=== PATIENT | female | born 1975 | race Caucasian/White ===

== ENCOUNTER 2019-04-03 00:42 | Day surgery (SDC) | payer OTHER, SELFPAY ==
[2019-03-22 10:15] VITALS: BMI 36.3
[2019-04-03 10:25] VITALS: BP 176/96; PULSE 82; RESP 20; TEMP 37; O2SAT 98
[2019-04-03] MEDS: LACTATED RINGERS 1,000 ML 30 ML IV CONT (10:50)
[2019-04-03 10:56] VITALS: BP 176/96; PULSE 82; RESP 20; TEMP 37; O2SAT 98
--- NOTE | 2019-04-03 11:26 | P.PNAN_ITS ---
Anes - Initial Pre Proc Eval Procedure: Operation Date: 04/03/19 12:00 Proposed Procedures p Hysteroscopy, Dilation and Curettage with Tere - Charanjit Cortes MD Date/Time: 04/03/19 11:26 Surgeon: Charanjit Cortes MD Pre Op Diagnosis: heavy bleeding, dysmenorrhea Patient Data Age: 44 Gender: F Height: 5 ft 6 in Weight: 101.7 kg Last Vital Signs Temp 37.0 C 04/03/19 10:56 Pulse 82 04/03/19 10:56 Resp 20 04/03/19 10:56 BP 176/96 H 04/03/19 10:56 Pulse Ox 98 04/03/19 10:56 Allergies Allergy/AdvReac Type Severity Reaction Status Date / Time No Known Allergies Allergy Verified 04/03/19 10:23 Home Medications Medication Instructions Recorded Confirmed Type multivit with min-folic acid 200 mcg PO DAILY 03/17/19 04/03/19 History [Adult Multivitamin Gummies] lilskpwzi-ZG-tjshhsxa-guaifen 2 tablet PO Q4-6H PRN 03/17/19 03/22/19 History [Cold and Flu Severe] azithromycin [Zithromax Z-Radames] 250 mg PO DAILY 03/22/19 04/03/19 History pseudoephedrine-guaifenesin 1 tablet PO Q12H PRN 03/22/19 03/22/19 History [Mucinex D] Patient hx anesthesia problems: none Family hx anesthesia problems: other (father slow to breath) [facility] Past Medical History Medical History Recent URI Anes - Eval Final PreProcedure Day of Procedure 04/03/19 11:26 Patient weight: obese Heart: regular rate and rhythm Lungs: clear to auscultation Airway: Mallampati scale class II Neurological: alert and oriented Last oral intake: >/= 8 hours ASA classification: II Emergent: no Anesthetic plan: proceed Anesthesia type and monitoring: general GIVS and standard monitoring Informed Consent: The patient's anesthetic plan and its attendant risks and be nefits were discussed with the patient/family/POA. Questions were solicited and answers provided to the satisfaction of the patient/family/POA.
--- NOTE | 2019-04-03 11:26 | PM.IMHP ---
H&P: HPI History of Present Illness Chief complaint: heavy bleeding, dysmenorrhea Narrative: CC: Cycle issues. 44-year-old 3 para 3003 who has had a tubal ligation for contraception. She has heavy menses. These occur on a monthly basis, lasting 7-8 days each with heavy flow and cramps. Ultrasound exam demonstrates a bulky, inhomogeneous uterus with a prominent endometrial complex measuring 13.5 cm. control pills have given her headaches in the past. She has tried Depo-Provera and an IUD in the past, as well. She has tried Lysteda recently, but has not had much improvement in her cycles. She is asking for surgical management of her problem. Review of Systems Review of Systems: All systems reviewed & are unremarkable except as noted in HPI and below PMFSH Family History Family History (Updated 04/03/19 @ 11:33 by Charanjit Cortes MD) Other Cancer Diabetes mellitus Hypertension Social History Social History (Updated 04/03/19 @ 11:34 by Charanjit Cortes MD) Social History: . 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 The largest weighed 9#10oz. Past BAKER HEAD: Menarche at 13-14 with menses as above. No history of abnormal pap or STI. Allergies: Dust, pollen, grasses, trees. NKDA. Meds Home Medications and Allergies Home Medications Medication Instructions Recorded Confirmed Type multivit with min-folic acid 200 mcg PO DAILY 03/17/19 04/03/19 History [Adult Multivitamin Gummies] umigtjrtn-BA-yxiozegm-guaifen 2 tablet PO Q4-6H PRN 03/17/19 03/22/19 History [Cold and Flu Severe] azithromycin [Zithromax Z-Radames] 250 mg PO DAILY 03/22/19 04/03/19 History pseudoephedrine-guaifenesin 1 tablet PO Q12H PRN 03/22/19 03/22/19 History [Mucinex D] Allergies Allergy/AdvReac Type Severity Reaction Status Date / Time No Known Allergies Allergy Verified 04/03/19 10:23 Vital Signs Vital Signs - 24 hr 04/03/19 10:25 04/03/19 10:56 Temperature 37.0 C 37.0 C Pulse Rate 82 82 Respiratory Rate 20 20 Blood Pressure 176/96 H 176/96 H Pulse Oximetry 98 98 Exam Const: General: comfortable and no acute distress Neck: Neck: supple Thyroid: thyroid normal Resp: Effort & Inspection: normal respiratory effort Auscultation: clear to auscultation bilaterally Cardio: Rate: regular rate Rhythm: regular rhythm GI: Other: Soft, nontender, nondistended. No guarding or rebound tenderness. No hepatosplenomegaly. : Other: External genitalia: Normal female hair distribution, without lesion Urethral meatus: No lesion, non-prolapsed. Bladder: No mass or tenderness. Vagina: Well estrogenized, without lesion or discharge. No cystocele or rectocele. Cervix: No lesion or discharge. Uterus: Small, anteverted, freely mobile and nontender. Adnexa: No mass or tenderness. Anus and perineum: No lesion, nontender. Skin: General skin exam: no rashes or lesions noted Extrem: Other: Nontender, no edema Psych: Mental Status: mental status grossly normal Affect: normal affect Assessment and Plan Assessment and plan (1) Menometrorrhagia: Code(s): N92.1 - Excessive and frequent menstruation with irregular cycle Status: Acute Assessment and Plan: We have reviewed options including medical management versus surgical management. She is interested in the latter. I have offered her a hysteroscopy with D&C and endometrial ablation. She understands risks of surgery to include risks of anesthesia, risks of pain, infection, bleeding, blood products, thromboembolic phenomena and damage to adjacent structures such as bowel, bladder, ureters, blood vessels and nerves. She understands all these risks and elects to proceed with surgery. (2) Dysmenorrhea: Code(s): N94.6 - Dysmenorrhea, unspecified Status: Acute
[2019-04-03] MEDS: KETOROLAC 30 MG/ML VIAL (*BKC) IV PUSH (13:02)
--- NOTE | 2019-04-03 13:12 | PM.PROC ---
Procedure Note - Detailed Date of procedure: 04/03/19 Pre-op diagnosis: heavy bleeding, dysmenorrhea Menometrorrhagia Dysmenorrhea Post-op diagnosis: same Procedure performed: Hysteroscopy D&C Endometrial ablation Description of procedure: The patient was taken to the operating room where she was prepared and draped in the usual sterile fashion in the dorsal lithotomy position. The bladder was drained with a red rubber catheter. A sterile speculum was placed into the vagina. The anterior lip of the cervix was grasped with single-tooth tenaculum. Ten mL of 1% lidocaine was administered in a paracervical block. The cervix was then gently dilated using Hegar dilators until an 8 mm dilator could be passed. Hysteroscopy was performed using sterile saline as a distention medium. Findings are as noted above. Sharp curettage was then performed, and endometrial curettings were collected on a Telfa pad and passed off to be sent to pathology. Finally, the the Tere device was advanced and endometrial ablation commenced without difficulty. The device was withdrawn and a second look was taken using the hysteroscope. Excellent coverage of the endometrial cavity was noted. The tenaculum was removed. Hemostasis was excellent. Sponge, lap, needle and instrument counts were correct. The patient was awakened and taken to the recovery room in stable condition. I was present and scrubbed through the entire procedure. Implants: None Anesthesia: MAC and local (paracervical block) Surgeon: Charanjit Cortes MD Estimated blood loss (mL): 5 Drains: No Packing: No Pathology: yes (Endometrial curettings) Complications: None Condition: stable Disposition: PACU Findings: The uterus sounded to a depth of 10 cm with a cervical length of 3 cm, giving a subtracted uterine cavity length of 7 cm. The endometrial cavity was unremarkable. Both tubal ostia were seen.
[2019-04-03 13:15] VITALS: BP 149/74; PULSE 80; RESP 16; O2SAT 96
[2019-04-03 13:59] VITALS: BP 160/88; PULSE 74; RESP 16
== END 2019-04-03 14:05 | disposition home or self-care (01) ==
PROVIDERS: Visit Provider Obstetrics & Gynecology
PROC: 0U5B8ZZ Destruction of Endometrium, Via Natural or Artificial Opening Endoscopic (ICD-10-PCS; CPT 58563; principal; 2019-04-03 12:00)
DX: N92.1 Excessive and frequent menstruation with irregular cycle (principal); N94.6 Dysmenorrhea, unspecified; E66.9 Obesity, unspecified; Z68.36 Body mass index [BMI] 36.0-36.9, adult
CPT/HCPCS: 58563; 88305; A9270; J1885; J2250; J2405; J2704; J3010; J7030; J7120

== ENCOUNTER 2019-11-15 00:26 | Outpatient (CLI) | payer OTHER, SELFPAY ==
[2019-11-16 13:39] LABS: SARS-CoV-2 RNA PCR Negative
== END 2019-11-15 00:27 | disposition home or self-care (01) ==
LOC: ANHCOVIDDT 00:27
PROVIDERS: Visit Provider Surgery
DX: Z01.812 Encounter for preprocedural laboratory examination (principal); Z20.828 Contact with and (suspected) exposure to other viral communicable diseases
CPT/HCPCS: 87635; C9803; U0003

== ENCOUNTER 2019-11-18 01:26 | Day surgery (SDC) | payer OTHER, SELFPAY ==
[2019-11-04 17:42] VITALS: BMI 35.5
[2019-11-18 10:00] VITALS: BP 158/88; PULSE 83; RESP 16; TEMP 37.1; O2SAT 99
[2019-11-18] MEDS: LACTATED RINGERS 1,000 ML 30 ML IV CONT (10:28)
--- NOTE | 2019-11-18 10:29 | WPDANESEPPF ---
Anes - Initial Pre Proc Eval Procedure: Operation Date: 11/18/19 12:00 Proposed Procedures p Excision Of Left Lower Back Mass - Steven Schwartz DO Date/Time: 11/18/19 10:29 Surgeon: Steven Schwartz DO Pre Op Diagnosis: Left Lower Back Mass 4cm Patient Data Age: 44 Gender: F Height: 1.68 m Weight: 101.1 kg Allergies Allergy/AdvReac Type Severity Reaction Status Date / Time No Known Allergies Allergy Verified 11/18/19 10:02 Home Medications Medication Instructions Recorded Confirmed Type multivit with min-folic acid 200 mcg PO DAILY 03/17/19 11/18/19 History [Adult Multivitamin Gummies] ibuprofen 600 mg PO Q6H PRN #30 tablet 04/03/19 11/18/19 Rx cetirizine [Zyrtec] 10 mg PO DAILY 11/04/19 11/18/19 History loratadine [Claritin] 10 mg PO DAILY 11/04/19 11/18/19 History Patient hx anesthesia problems: none Family hx anesthesia problems: none [facility] Social History Social History Social History: . 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 Questions were solicited and answers provided to the satisfaction of the patient/family/POA.
--- NOTE | 2019-11-18 11:25 | WPDHPUPDATE1 ---
History and Physical Update Update Date/Time: 11/18/19 11:25 History and Physical has been reviewed, including an updated exam of the patient. There are NO changes in the patient's condition. Risks, benefits, and alternatives have been discussed and questions answered. Patient agrees to proceed with procedure.
[2019-11-18] MEDS: ceFAZolin 2 GM/D5W 50 ML 2 GM/50 ML BAG IVPB (12:01)
[2019-11-18] MEDS: LIDO 1%/EPINEPHRINE 1:100,000 20 ML VIAL INFILTRATE (12:26)
--- NOTE | 2019-11-18 12:27 | P.OP_ITS ---
Procedure Note - Detailed Date of procedure: 11/18/19 Pre-op diagnosis: Left Lower Back Mass 4cm Post-op diagnosis: same Procedure performed: Excision of 4 cm left lower back mass Description of procedure: * Procedure as well as risks, benefits, and alternatives were discussed with the patient. Written consent was obtained and placed in chart prior to procedure. Patient was brought back to surgical suite. She was placed in right lateral decubitus position. Time-out was done to confirm patient and procedure. IV sedation was administered by the Anesthesia Department. Her back area was prepped and draped in sterile fash ion using chlorhexidine prep. 1% lidocaine with epinephrine was infiltrated locally around the mass. A 4 cm elliptical incision was made around the mass using a 15 blade scalpel. The mass was sharply excised from the surrounding subcutaneous tissue using the 15 blade scalpel. The mass was completely excised and sent to the lab for pathology. Hemostasis was then achieved with electrocautery. The wound bed was then irrigated with sterile saline, no further abnormalities were identified. The skin edges were then reapproximated using 3 0 nylon simple interrupted sutures. Bacitracin ointmen t was applied followed by 4 x 4 gauze and tape. The patient was then awakened from anesthesia and transferred to recovery. Anesthesia: MAC and local (1% lidocaine with epinephrine) Surgeon: Steven Schwartz DO Estimated blood loss (mL): 5 Pathology: yes Complications: No immediate complications Condition: stable Disposition: same day Findings: * 4 cm back mass was excised completely. This appeared to be a ruptured epidermal inclusion cyst in the left lower back. No deep abnormalities were noted. There was no sign of active infection at the time of excision. The mass was completely excised and sent to the lab for pathology.
[2019-11-18 12:34] VITALS: BP 133/70; PULSE 78; RESP 16; TEMP 36.4; O2SAT 95
[2019-11-18 13:00] VITALS: BP 145/78; PULSE 77; RESP 16
[2019-11-18 13:20] VITALS: BP 141/76; PULSE 80; RESP 16
== END 2019-11-18 13:30 | disposition home or self-care (01) ==
PROVIDERS: Visit Provider Surgery
PROC: (CPT 11404; principal; 2019-11-18 12:00)
DX: L72.0 Epidermal cyst (principal); E66.9 Obesity, unspecified; Z68.36 Body mass index [BMI] 36.0-36.9, adult
CPT/HCPCS: 11404; 87635; 88304; A9270; C9803; J0690; J2250; J2405; J2704; J3010; J7120; U0003

== ENCOUNTER 2020-01-10 10:52 | Outpatient (CLI) | payer OTHER, SELFPAY | END 2020-01-10 10:53 | disposition home or self-care (01) | LOC: ANHSURGERY 10:54 | PROVIDERS: Visit Provider Obstetrics & Gynecology | DX: N94.6 Dysmenorrhea, unspecified (principal); Z01.818 Encounter for other preprocedural examination | CPT/HCPCS: 36415; 86850; 86900; 86901 ==

== ENCOUNTER 2020-01-17 01:54 | Outpatient (CLI) | payer OTHER, SELFPAY ==
[2020-01-17 19:51] LABS: SARS-CoV-2 RNA PCR Negative
== END 2020-01-17 01:55 | disposition home or self-care (01) ==
LOC: ANHCOVIDDT 01:54
PROVIDERS: Visit Provider Obstetrics & Gynecology
DX: Z01.812 Encounter for preprocedural laboratory examination (principal); Z20.828 Contact with and (suspected) exposure to other viral communicable diseases
CPT/HCPCS: 87635; C9803; U0003

== ENCOUNTER 2020-01-20 00:32 | Day surgery (SDC) | payer OTHER, SELFPAY ==
[2020-01-07 14:51] VITALS: BMI 35.6
[2020-01-20] VITALS (14 sets, daily range): BP systolic 139–170; BP diastolic 68–80; PULSE 54–94; RESP 12–20; TEMP 36.2–37.2; O2SAT 96–100
--- NOTE | 2020-01-20 07:26 | WPDANESEPPF ---
Anes - Initial Pre Proc Eval Procedure: Operation Date: 01/20/20 12:00 Proposed Procedures p Robotic Total Vaginal Hysterectomy, Bilateral Salpingectomy - Charanjit Cortes MD Date/Time: 01/20/20 07:26 Surgeon: Charanjit Cortes MD Pre Op Diagnosis: Excessive Bleeding Patient Data Age: 45 Gender: F Height: 1.68 m Weight: 100 kg Allergies Allergy/AdvReac Type Severity Reaction Status Date / Time No Known Allergies Allergy Verified 01/20/20 10:06 Home Medications Medication Instructions Recorded Confirmed Type Adult Multivitamin Gummies 200 mcg PO DAILY 03/17/19 01/20/20 History ibuprofen 600 mg PO Q6H PRN #30 tablet 04/03/19 01/20/20 Rx cetirizine [Zyrtec] 10 mg PO DAILY PRN 11/04/19 01/20/20 History loratadine [Claritin] 10 mg PO DAILY PRN 11/04/19 01/20/20 History acetaminophen-codeine 300 tablet PO PRN PRN 01/07/20 01/20/20 History Patient hx anesthesia problems: none Family hx anesthesia problems: none PMFSH Past Medical History Medical History Environmental and seasonal allergies Recent URI Surgical History Surgical History delivery delivered H/O excision of mass 11/18/2019: 4cm back mass excision History of cholecystectomy History of D&C History of prior ablation treatment Family History Family History Father Diabetes mellitus Other Cancer Hypertension Social History Social History Social History: . 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 Gender identity (if verbalized by the patient): Female Sexual Orientation (if Verbalized by the Patient): Straight or Heterosexual Spiritual care concerns: No Anes - Eval Final PreProcedure Day of Procedure 01/20/20 07:26 Patient weight: obese Heart: regular rate and rhythm Lungs: clear to auscultation and normal air movement Airway: Mallampati scale class II Neurological: alert and oriented Last oral intake: >/= 8 hours ASA classification: II Emergent: no Anesthetic plan: proceed Anesthesia type and monitoring: general ETT and standard monitoring Informed Consent: The patient's anesthetic plan and its attendant risks and benefits were discussed with the patient/family/POA. Questions were solicited and answers provided to the satisfaction of the patient/family/POA.
--- NOTE | 2020-01-20 10:07 | PM.IMHP ---
H&P: HPI History of Present Illness Date/Time: 01/20/20 10:07 Chief complaint: Excessive Bleeding Narrative: 45 y/o who has had a tubal ligation and an endometrial ablation. She still has menses lasting 7 days each with especially heavy flow for 2-3 days. Sometime she will overflow her tampon onto her pad onto her clothing. Ultrasound exam shows an inhomogeneous myometrium. Endometrial curettings were benign at the time of endometrial ablation. Review of Systems Review of Systems: All systems reviewed & are unremarkable except as noted in HPI and below PMFSH Past Medical History Medical History Environmental and seasonal allergies Recent URI Surgical History Surgical History delivery delivered H/O excision of mass 11/18/2019: 4cm back mass excision History of cholecystectomy History of D&C History of prior ablation treatment Family History Family History Father Diabetes mellitus Other Cancer Hypertension Social History Social History Social History: . 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 Gender identity (if verbalized by the patient): Female Sexual Orientation (if Verbalized by the Patient): Straight or Heterosexual Spiritual care concerns: No Meds Home Medications and Allergies Home Medications Medication Instructions Recorded Confirmed Type Adult Multivitamin Gummies 200 mcg PO DAILY 03/17/19 01/07/20 History ibuprofen 600 mg PO Q6H PRN #30 tablet 04/03/19 01/07/20 Rx cetirizine [Zyrtec] 10 mg PO DAILY PRN 11/04/19 01/07/20 History loratadine [Claritin] 10 mg PO DAILY PRN 11/04/19 01/07/20 History acetaminophen-codeine 300 tablet PO PRN PRN 01/07/20 01/07/20 History Allergies Allergy/AdvReac Type Severity Reaction Status Date / Time No Known Allergies Allergy Verified 01/20/20 10:06 Exam Const: Orientation/consciousness: patient oriented x3 Other: Well-developed, well-nourished female in no acute distress. Neck: Thyroid: thyroid normal Lymphatic: no lymphadenopathy noted (in neck, axilla or inguinal nodes) Resp: Effort & Inspection: normal respiratory effort Auscultation: clear to auscultation bilaterally Cardio: Rate: regular rate Rhythm: regular rhythm Heart sounds: S1 normal heart sound present and S2 normal heart sound present GI: Other: ABD: Soft, nontender, nondistended. No guarding or rebound tenderness. No hepatosplenomegaly. : General: Yes no CVA tenderness Other: External genitalia: normal female hair distribution, without lesion. Urethral meatus: no lesion, non prolapsed. Bladder: no mass, nontender Vagina: well-estrogenized, without lesion or discharge. No cystocele or rectocele. Cervix: no lesion or discharge. Uterus: small, anteverted, freely mobile, nontender Adnexa: no mass or tenderness. Anus/perineum: no lesions, nontender Back/Spine/Pelvis: Back: no CVA tenderness Skin: General skin exam: normal color and no rashes or lesions noted Neuro: General: patient oriented x3 Extrem: Other: Extremities: nontender with no edema Psych: Mental Status: mental status grossly normal Affect: normal affect Assessment and Plan Assessment and plan (1) Menometrorrhagia: Code(s): N92.1 - Excessive and frequent menstruation with irregular cycle Status: Acute Assessment and Plan: I offered continued attempts at conservative management. She is interested in definitive treatment with hysterectomy. I offered robotic-assisted TVH with bilateral salpingectomy. We plan to leave the ovaries in situ.
[2020-01-20] MEDS: LACTATED RINGERS 1,000 ML 30 ML IV CONT ×2 (10:15→14:01)
--- NOTE | 2020-01-20 11:48 | WPDHPUPDATE1 ---
History and Physical Update Update Date/Time: 01/20/20 11:48 History and Physical has been reviewed, including an updated exam of the patient. There are NO changes in the patient's condition. Risks, benefits, and alternatives have been discussed and questions answered. Patient agrees to proceed with procedure.
[2020-01-20] MEDS: ceFAZolin 2 GM/D5W 50 ML 2 GM/50 ML BAG IVPB (11:59)
--- NOTE | 2020-01-20 13:50 | P.OP_ITS ---
Procedure Note - Detailed Date of procedure: 01/20/20 Pre-op diagnosis: Excessive Bleeding Menometrorrhagia Post-op diagnosis: same Procedure performed: Robotic assisted total vaginal hysterectomy with bilateral salpingectomies Description of procedure: The patient was taken to the operating room where general endotracheal anesthesia was administered. She was prepared and draped in the usual sterile fashion in the dorsal lithotomy position. The bladder was drained with Ayala catheter. The cervix was visualized and the anterior lip was grasped using a single-tooth tenaculum. The cervix was gently dilated using Hegar dilators. The ANA PAULA 2 uterine manipulator was then placed and the tenaculum was removed. Gloves were changed and attention was turned to the abdomen. A supraumbilical skin incision was made with the scalpel. The Veress needle was advanced and pneumoperitoneum was administered using carbon dioxide gas. The bladeless trocar was then advanced. Intraperitoneal placement was confirmed using the laparoscope. Lateral ports and an licensed occupational therapy assistant port were all placed using bladeless trocars under direct laparoscopic visualization. She was placed in Trendelenburg position and the patient cart was docked. I assumed the console. The ureters were visualized bilaterally. The round ligament on the right was divided. The Fallopian tube was dissected free of the ovary and the uteroovarian ligament divided. The broad ligament was divided, skeletonizing the uterine artery on the right. The bladder was reflected away. The left side was similarly dissected. Colpotomy was performed circumferentially. The specimen was removed and passed off to be sent to pathology. The vaginal cuff was reapproximated using 0 Vicryl in interrupted kkonfr-en-tntip fashion. The pelvis was irrigated copiously using warmed normal saline. Rigorous hemostasis was assured. HemaDerm was applied to the vaginal cuff. The pedicles were inspected once again. The ports were then withdrawn and the gas was allowed to escape. The skin incisions were reapproximated using 4 0 Monocryl in interrupted subcuticular fashion. Dermaflex was applied externally. Sponge, lap, needle and instrument counts were correct. The patient was awakened and taken to the recovery room in stable condition. I was present and scrubbed through the entire procedure. Implants: None Anesthesia: GETA Surgeon: Charanjit Cortes MD Estimated blood loss (mL): 50 Drains: Yes (ayala) Packing: No Pathology: yes (uterus, cervix, bilateral Fallopian tubes) Complications: None Condition: stable Disposition: PACU Findings: Uterus a little enlarged, otherwise normal-appearing. Bilateral Fallopian tubes demonstrate evidence of prior tubal ligation. Adhesions between the omentum and the left lateral pelvic sidewall.
[2020-01-20] MEDS: KETOROLAC 30 MG/ML VIAL (*BKC) 15 MG IV PUSH (13:52)
--- NOTE | 2020-01-20 13:53 | PM.DS ---
DS: Admitting Diagnosis Admitting Diagnosis Admitting Diagnosis: Menometrorrhagia DS: Discharge Diagnosis Discharge Diagnosis (1) Menometrorrhagia: Code(s): N92.1 - Excessive and frequent menstruation with irregular cycle Status: Acute DS: Data Data Completed and Pending Pending studies at discharge: Pending at discharge 01/20/20 13:10 Surgical [PTH] Routine Discharge Plan Discharge Patient Disposition: Home, Self-Care Discharge Instructions: Call or return if temperature above 100.4? F, increased abdominal pain, increased vaginal bleeding or any new problems. Stand Alone Forms: General Discharge Instructions Follow-up/Referrals: Charanjit Cortes MD [Physician] - 2 Weeks Discharge Medications: New hydrocodone-acetaminophen [[place]] 5-325 mg tablet 1 - 2 tablet PO Q6H PRN (Reason: pain) Qty: 30 RF: 0 No Action Adult Multivitamin Gummies 200 mcg Tablet,Chewable 200 mcg PO DAILY RF: 0 ibuprofen 600 mg tablet 600 mg PO Q6H PRN (Reason: cramps) Qty: 30 RF: 0 acetaminophen-codeine 300-30 mg tablet 300 tablet PO PRN PRN (Reason: Pain) RF: 0 cetirizine [Zyrtec] 10 mg Tablet 10 mg PO DAILY PRN (Reason: Allergy Symptoms) RF: 0 loratadine [Claritin] 10 mg Tablet 10 mg PO DAILY PRN (Reason: Allergy Symptoms) RF: 0
[2020-01-20] MEDS: fentaNYL CITRATE INJ (*CRX) 100 MCG/2 ML VIAL 25 MCG IV PUSH ×4 (14:24→14:42)
[2020-01-20] MEDS: HYDROmorphone HCL INJ (*CRX) 1 MG/ML SYR 0.5 MG IV PUSH ×2 (14:57→15:05)
[2020-01-20] MEDS: DEXTROSE 5%/0.45% SOD CHL 1,000 ML 125 ML IV CONT ×2 (15:44→23:27)
[2020-01-20] MEDS: MORPHINE SULFATE (*CRX) 4 MG/ML INJ IV PUSH (16:50)
--- NOTE | 2020-01-20 17:03 | OBPPTRN ---
Addendum entered by Trudi Shane RN 01/20/20 17:04: done at 1528 Original Note: Patient transferred to post room #289 via bed. Oriented to unit, room, information board, Patient verbalizes understanding.
[2020-01-20] MEDS: ONDANSETRON INJ 4 MG/2 ML VIAL IV PUSH (17:53)
[2020-01-20] MEDS: ENOXAPARIN 40 MG/0.4 ML SYRINGE SUB-Q (21:12)
[2020-01-20] MEDS: KETOROLAC 30 MG/ML VIAL (*BKC) IV PUSH (21:17)
[2020-01-21] VITALS: BP 140/71; PULSE 90; RESP 16; TEMP 37; O2SAT 100
[2020-01-21 04:00] VITALS: BP 133/66; PULSE 70; RESP 16; TEMP 37.1; O2SAT 99
[2020-01-21] MEDS: HYDROcodone/acetaminophen (*CRX) 5-325 MG TABLET 1 TAB PO ×2 (04:08→08:36)
[2020-01-21 05:15] LABS: Basophils Percent Auto 0.1 % (0.2-1.2); Hematocrit 35.5 % (37.0-47.0); Hemoglobin 11.7 g/dL (12.0-15.0); Immature Granulocyte Absolute 0.07 K/mm3 (0.00-0.031); Immature Granulocyte Percent A 0.5 % (0-0.5); Lymphocytes Percent Auto 6.9 % (18.3-44.2); Mean Corpuscular Hemoglobin 28.3 pg (26-34); Mean Corpuscular Volume 85.7 fl (80-100); Mean Platelet Volume 8.8 fl (7.4-10.4); Monocytes Absolute Auto 0.7 K/mm3 (0.1-0.6); Monocytes Percent Auto 5.1 % (2.6-8.5); Neutrophils Absolute Auto 12.8 K/mm3 (1.3-6.7); Neutrophils Percent Auto 87.4 % (45.5-73.1); Platelet Count Result 349 k/mm3 (150-375); Red Blood Count 4.14 M/mm3 (4.2-5.4); Red Cell Distribution Width 12.9 % (11.5-14.5); White Blood Count 14.6 K/mm3 (4.5-10.0)
[2020-01-21 08:05] VITALS: BP 147/72; PULSE 83; RESP 16; TEMP 37.5; O2SAT 99
[2020-01-21] MEDS: ENOXAPARIN 40 MG/0.4 ML SYRINGE SUB-Q (08:37)
--- NOTE | 2020-01-21 08:47 | PM.GYNPNOP ---
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 P: Home to f/u 2 weeks. 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 Tolerating diet. Voiding. Would like to go home. Exam Narrative: Exam Narrative: AVSS I/O OK ABD soft, nontender. Incisions c/d/i. 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 OPERATOR - PN: Obj Data Vital Signs Vital Signs: Vital Signs - 24 hr 01/20/20 10:01 01/20/20 14:01 01/20/20 14:15 Temperature 36.6 C 36.2 C L Pulse Rate 70 58 L 54 L Respiratory Rate 20 12 12 Blood Pressure 170/77 H 139/68 147/73 H Pulse Oximetry 100 98 100 01/20/20 14:30 01/20/20 14:45 01/20/20 15:00 Temperature Pulse Rate 58 L 63 63 Respiratory Rate 12 12 12 Blood Pressure 154/71 H 158/74 H 141/74 H Pulse Oximetry 100 100 100 01/20/20 15:15 01/20/20 15:28 01/20/20 15:45 Temperature 36.4 C L Pulse Rate 66 69 67 Respiratory Rate 14 16 Blood Pressure 146/73 H 156/74 H 151/73 H Pulse Oximetry 97 96 99 01/20/20 16:00 01/20/20 16:30 01/20/20 17:00 Temperature Pulse Rate 80 81 83 Respiratory Rate Blood Pressure 148/73 H 140/71 152/71 H Pulse Oximetry 98 96 97 01/20/20 18:00 01/20/20 19:00 01/21/20 00:00 Temperature 37.2 C 37.0 C Pulse Rate 94 87 90 Respiratory Rate 16 16 Blood Pressure 155/80 H 151/75 H 140/71 Pulse Oximetry 97 98 100 01/21/20 04:00 Temperature 37.1 C Pulse Rate 70 Respiratory Rate 16 Blood Pressure 133/66 Pulse Oximetry 99 Intake/Output Intake/Output: Intake & Output 01/18/20 01/19/20 01/20/20 01/21/20 23:59 23:59 23:59 23:59 Intake Total 5260 1175 Output Total 975 850 Balance 1455 325 Meds/Results Medications: Active Medications Generic Name Dose Route Start Last Admin Trade Name Freq PRN Reason Stop Dose Admin Hydrocodone Bitart/Acetaminophen 1 tab 01/20/20 15:24 01/21/20 08:36 Hydrocodone/Acetaminophen (*Crx) 5-325 Mg Tablet PO 1 tab Q3H PRN Administration Pain Rated 5 or Less Hydrocodone Bitart/Acetaminophen 1 tab 01/20/20 15:24 Hydrocodone/Acetaminophen (*Crx) 10-325 Mg Tablet PO Q3H PRN Pain Rated 6 or Greater Docusate Sodium 100 mg 01/20/20 17:00 01/20/20 18:33 Docusate Sodium 100 Mg Capsule PO Not Given BID SUMAN Enoxaparin Sodium 40 mg 01/20/20 21:00 01/21/20 08:37 Enoxaparin 40 Mg/0.4 Ml Syringe SUB-Q 40 mg DAILY SUMAN Administration Ketorolac Tromethamine 30 mg 01/20/20 15:24 01/20/20 21:17 Ketorolac 30 Mg/Ml Vial (*Bkc) IV PUSH 01/25/20 15:25 30 mg Q6H PRN Administration Pain Rated 4-6 Metoclopramide HCl 10 mg 01/20/20 15:24 Metoclopramide Hcl Inj 10 Mg/2 Ml Vial IV PUSH Q6H PRN Nausea Morphine Sulfate 4 mg 01/20/20 15:24 01/20/20 16:50 Morphine Sulfate (*Crx) 4 Mg/Ml Inj IV PUSH 4 mg Q4H PRN Administration Pain Rated 7-10 Naloxone HCl 0.1 mg 01/20/20 15:24 Naloxone Hcl 0.4 Mg/Ml Vial IV PUSH Q2M PRN Respiratory rate less than 10 Ondansetron HCl 4 mg 01/20/20 15:24 01/20/20 17:53 Ondansetron Inj 4 Mg/2 Ml Vial IV PUSH 4 mg Q6H PRN Administration Nausea Simethicone 80 mg 01/20/20 15:24 Simethicone 80 Mg Tab.Chew PO Q2H PRN Gas Labs CBC & Chem 7: 01/21/20 04:09 Labs: Laboratory Results - last 24 hr 01/21/20 04:09 WBC 14.6 H RBC 4.14 L Hgb 11.7 L Hct 35.5 L MCV 85.7 MCH 28.3 MCHC 33.0 RDW 12.9 Plt Count 349 MPV 8.8 Immature Gran % (Auto) 0.5 Neut % (Auto) 87.4 H Lymph % (Auto) 6.9 L [place] % (Auto) 5.1 Eos % (Auto) 0.0 Baso % (Auto) 0.1 L Lymph # (Auto) 1.00 [place] # (Auto) 0.7 H Eos # (Auto) 0.0 Baso # (Auto) 0.0 Abs Immat Gran (auto) 0.07 H Absolute Neuts (a
== END 2020-01-21 11:00 | disposition home or self-care (01) ==
LOC: ANHSURGERY 13:54 → ANHOB2 15:25
PROVIDERS: Visit Provider Obstetrics & Gynecology
PROC: (CPT 58552; principal; 2020-01-20 12:00)
DX: N92.1 Excessive and frequent menstruation with irregular cycle (principal); N72 Inflammatory disease of cervix uteri; E66.9 Obesity, unspecified; Z68.36 Body mass index [BMI] 36.0-36.9, adult
CPT/HCPCS: 58552; S2900; 36415; 85025; 88307; 99199; A9270; J0330; J0690; J1100; J1170; J1650; J1885; J2250; J2270; J2405; J2704; J2710; J3010; J7030; J7120

== ENCOUNTER → 2020-04-17 14:12 | Outpatient (CLI) | payer OTHER, SELFPAY ==
--- NOTE | ~2020-04-17 | MM_ITS ---
EXAMINATION: MM screening arsenio BI w maria m HISTORY: Screening mammogram TECHNIQUE: Craniocaudal and mediolateral oblique 3-D tomosynthesis images were obtained and synthetic 2-D images were generated. CAD analysis was submitted and interpreted. COMPARISON: No prior mammogram is available for comparison at this institution. BREAST PARENCHYMAL COMPOSITION: The breasts are heterogeneously dense, which may obscure small masses . FINDINGS: Numerous scattered bilateral benign microcalcifications. Bilateral intramammary lymph nodes are noted.. There is no evidence of suspicious mass, calcification, or architectural distortion to s uggest malignancy in either breast. There has been no suspicious interval change. IMPRESSION: 1. No mammographic evidence of malignancy. 2. Recommend routine screening mammography in one year. BI-RADS Category 2: Benign finding(s). Reviewed, dictated and finalized at location A. BLE PROCESSOR
== END ==
PROVIDERS: Visit Provider Obstetrics & Gynecology
DX: Z12.31 Encounter for screening mammogram for malignant neoplasm of breast (principal)
CPT/HCPCS: 77063; 77067

== ENCOUNTER → 2020-10-27 14:56 | Outpatient (CLI) | payer OTHER, SELFPAY ==
--- NOTE | ~2020-10-27 | MR_ITS ---
EXAMINATION: MR lumbar spine wo con DATE: 10/27/2020 15:42 INDICATION: Low back pain. TECHNIQUE: Magnetic resonance imaging (MRI) of the lumbar spine was performed without intravenous con trast. Sequences included sagittal T2-weighted FSE, sagittal T2-weighted FS FSE, sagittal T1-weighted FSE, and axial T2-weighted FSE. COMPARISON: None FINDINGS: Bone alignment is normal. There are Schmorl's nodes at multiple levels. Intervertebral disc heights are normal. The distal spinal cord signal intensity is normal. The conus medullaris is at T1 2-L1. The following disc levels are specifically discussed: L1-L2: The disc does not extend beyond the endplate margin. There is mild bilateral facet joint osteo arthritis. There is no neural foraminal stenosis. There is no central canal stenosis. L2-L3: There is a left foraminal protrusion. There is mild bilateral facet joint osteoarthritis. Ther e is mild left neural foraminal stenosis. There is no central canal stenosis. L3-L4: There is a right foraminal protrusion. There is mild bilateral facet joint osteoarthritis. The re is mild right neural foraminal stenosis. There is no central canal stenosis. L4-L5: The disc does not extend beyond the endplate margin. There is mild bilateral facet joint osteo arthritis. There is no neural foraminal stenosis. There is no central canal stenosis. L5-S1: There is a right central protrusion with annular fissure. There is no facet joint osteoarthrit is. There is mild bilateral neural foraminal stenosis. There is mild central canal stenosis. IMPRESSION: 1. Mild lumbar spondylosis. Reviewed, dictated and finalized at location A. IMPRESSION: 1. Mild lumbar spondylosis.
== END ==
PROVIDERS: PCP Nurse Practitioner Family; Visit Provider Nurse Practitioner Family
DX: M54.41 Lumbago with sciatica, right side (principal); M47.896 Other spondylosis, lumbar region
CPT/HCPCS: 72148

== ENCOUNTER 2021-03-02 11:49 | Outpatient (CLI) | payer OTHER, SELFPAY ==
--- NOTE | ~2021-03-02 | MMUS_ITS ---
EXAMINATION: MM diagnostic arsenio BI w maria m, US breast RT limited HISTORY: Palpable right breast abnormality TECHNIQUE: Additional 3-D tomosynthesis images of the breasts were performed and synthetic 2-D images were generated. CAD analysis was submitted and interpreted. High resolution Limited right breast ult rasound was performed. COMPARISON: 04/17/2020 BREAST PARENCHYMAL COMPOSITION: The breasts are heterogenously dense, which may obscure small masses. FINDINGS: MAMMOGRAPHIC FINDINGS: There are benign right breast calcifications. No new masses, calcifications or architectural distorti on are identified in either breast to suggest malignancy. ULTRASOUND: Limited right breast ultrasound: At 10:00, 2 cm from the nipple there is an oval hypoechoic circumscr ibed mass with parallel orientation, no significant posterior features or internal vascularity measur ing 6 x 6 x 5 mm, likely benign complicated cyst or fibroadenoma. At 10:00, 3 cm from the nipple, the re is a 3 mm cyst. IMPRESSION: 1. Probable benign right breast mass at 10:00, 2 cm from the nipple 2. Recommend 6 month follow-up limited right breast ultrasound BI-RADS category 3, probably benign findings. Reviewed, dictated and finalized at location A. TOPPER IMPRESSION: 1. Probable benign right breast mass at 10:00, 2 cm from the nipple 2. Recommend 6 month follow-up limited right breast ultrasound BI-RADS category 3, probably benign findings.
== END 2021-03-02 11:50 | disposition home or self-care (01) ==
LOC: ANHIMG 11:53
PROVIDERS: PCP Nurse Practitioner Family; Visit Provider Obstetrics & Gynecology
DX: R92.8 Other abnormal and inconclusive findings on diagnostic imaging of breast (principal)
CPT/HCPCS: 76642; 77062; 77066; G0279

== ENCOUNTER 2021-03-06 10:09 | Emergency (ER) | payer OTHER, SELFPAY ==
--- NOTE | ~2021-03-06 | XR_ITS ---
EXAMINATION: XR ankle LT min 3V DATE: 03/06/2021 12:34 INDICATION: Left ankle injury. Fall. TECHNIQUE: 4 views of left ankle were obtained. COMPARISON: None. FINDINGS: Bone alignment is normal. No fracture. There is an osteochondral lesion of lateral talar do me. There is mild osteoarthritis of talonavicular joint. There are enthesophytes at the posterior and plantar aspects of calcaneal tuberosity. IMPRESSION: 1. Osteochondral lesion of lateral talar dome. Reviewed, dictated and finalized at location A. CATION SPECIALIST
--- NOTE | ~2021-03-06 | XR_ITS ---
EXAMINATION: XR foot LT min 3V DATE: 03/06/2021 13:13 INDICATION: Left foot injury and pain. TECHNIQUE: 4 views of left foot were obtained. COMPARISON: None. FINDINGS: There is chronic deformity of head of fifth proximal phalanx. Bone alignment is normal. No fracture. There is mild osteoporosis of some of the interphalangeal joints and first metatarsophalang eal joint. There are enthesophytes at the posterior and plantar aspects of calcaneal tuberosity. IMPRESSION: 1. Mild polyarticular osteoarthritis. Reviewed, dictated and finalized at location A. OP SOFTWARE ENGINEER
[2021-03-06 10:31] VITALS: BP 216/87; PULSE 85; RESP 16; TEMP 36.6; O2SAT 100
[2021-03-06] MEDS: HYDROcodone/acetaminophen (*CRX) 5-325 MG TABLET 1 TAB PO (13:32)
--- NOTE | 2021-03-06 13:43 | ED.LOWEXIN ---
HPI - Extremity Injury (Lower) General Chief Complaint: Extremity Injury, Lower Stated Complaint: pain in left foot Time Seen by Provider: 03/06/21 11:43 Source: RN notes reviewed History of Present Illness HPI Narrative: Patient presents emergency department from home for left ankle pain. Patient states she was walking yesterday when she slipped in the mud and twisted her left ankle. States she had pain in the left lateral ankle since that time with mild swelling she has been using crutches to walk as it hurts to weight-bear states that she took ibuprofen at home with no relief she denies any other trauma or injury denies falling to the ground or striking her head states she does have a history of hypertension but not take her blood pressure medications morning Related Data Home Medications Medication Instructions Recorded Confirmed loratadine [Claritin] 10 mg PO DAILY PRN 11/04/19 12/22/20 Allergies Allergy/AdvReac Type Severity Reaction Status Date / Time No Known Allergies Allergy Verified 03/06/21 12:04 Review of Systems Review of Systems: Gen.: Denies fevers or chills Musculoskeletal: See HPI Neuro: Denies numbness, tingling, weakness Skin: Denies rash Endo: Denies DM PMFSH Past Medical History Medical History Abdominal discomfort in left upper quadrant Carpal tunnel syndrome on both sides Elevated blood pressure reading in office without diagnosis of hypertension Elevated WBC count Encounter to establish care Environmental and seasonal allergies Hypertension Lumbago with sciatica, right side Mixed hyperlipidemia Recent URI Surgical History Surgical History delivery delivered H/O excision of mass 11/18/2019: 4cm back mass excision History of cholecystectomy History of D&C History of prior ablation treatment Hx of hysterectomy 2019 Family History Family History Father Diabetes mellitus Sibling Asthma Mother Diabetes mellitus Other Cancer Hypertension Social History Social History Social History: . 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 Following commands, speech normal, no focal deficits SKIN:: Warm, dry. Normal Color no rash or lesions Course Course Emergency Course: Discussed with patient results of workup and diagnosis. Discussed need for follow-up with primary care, proper use of medication, and reasons to return to the emergency department. Patient understands and agrees to current treatment plan Vital Signs Vital signs: Vital Signs Temperature 98 F 03/06/21 10:31 Pulse Rate 85 03/06/21 10:31 Respiratory Rate 16 03/06/21 10:31 Blood Pressure 216/87 H 03/06/21 10:31 Pulse Oximetry 100 03/06/21 10:31 Temperature 98 F 03/06/21 10:31 Pulse Rate 85 03/06/21 10:31 Respiratory Rate 16 03/06/21 10:31 Blood Pressure 216/87 H 03/06/21 10:31 Pulse Oximetry 100 03/06/21 10:31 MDM - Extremity Injury (Lower) Imaging Data Radiologist's impression: ITS Impressions
== END 2021-03-06 14:14 | disposition home or self-care (01) ==
PROVIDERS: Emergency Provider Emergency Medicine; PCP Nurse Practitioner Family
DX: S93.402A Sprain of unspecified ligament of left ankle, initial encounter (principal); I10 Essential (primary) hypertension; W01.0XXA Fall on same level from slipping, tripping and stumbling without subsequent striking against object, initial encounter
CPT/HCPCS: 73610; 73630; 99283; A9270

== ENCOUNTER 2021-03-15 15:45 | Outpatient (CLI) | payer OTHER, SELFPAY ==
--- NOTE | ~2021-03-15 | MR_ITS ---
EXAMINATION: MR ankle LT wo con DATE: 03/15/2021 16:53 INDICATION: Rupture of peroneal tendon of left foot. TECHNIQUE: Magnetic resonance imaging (MRI) of the left ankle was performed without intravenous contr ast. Sequences included sagittal PD-weighted FS FSE, sagittal PD-weighted FSE, coronal PD-weighted FS FSE, coronal PD-weighted FSE, axial PD-weighted FS FSE, and axial PD-weighted FSE. COMPARISON: Left foot and ankle radiographs 03/06/2021 FINDINGS: Medial ankle ligaments: The deep and superficial components of the deltoid ligament are normal. Lateral ankle ligaments: The anterior and posterior talofibular ligaments and calcaneofibular ligament are normal. There are c hanges of prior sprain of anterior tibiofibular ligament characterized by increased signal intensity. Posterior tibiofibular ligament is normal. Tendons: The medial and anterior ankle tendons are normal. There is mild Achilles tendinopathy. There is a issac gitudinal split tear of peroneus brevis tendon. There is a complete tear of peroneus longus tendon at the cuboid tunnel with gap spanning 2.6 cm. Plantar fascia: There is thickening and increased signal involving the central band of plantar fascia, consistent wit h fasciitis. There is an enthesophyte at the calcaneal attachment. Bones/other: Bone alignment is normal. There is an osteochondral lesion of lateral talar dome with stable features . Fluid: There are small ankle and subtalar joint effusions. IMPRESSION: 1. Complete tear of peroneus longus tendon at the cuboid tunnel. Longitudinal split tear of peroneus brevis tendon. 2. Stable osteochondral lesion of lateral talar dome. 3. Plantar fasciitis. Reviewed, dictated and finalized at location B. ING SUPERVISOR IMPRESSION: 1. Complete tear of peroneus longus tendon at the cuboid tunnel. Longitudinal s plit tear of peroneus brevis tendon. 2. Stable osteochondral lesion of lateral talar dome. 3. Plantar fasciitis.
== END 2021-03-15 15:46 | disposition home or self-care (01) ==
LOC: ANHIMG 15:53
PROVIDERS: PCP Nurse Practitioner Family
DX: S96.812A Strain of other specified muscles and tendons at ankle and foot level, left foot, initial encounter (principal); M89.9 Disorder of bone, unspecified; M72.2 Plantar fascial fibromatosis
CPT/HCPCS: 73721

== ENCOUNTER 2021-10-07 12:35 | Outpatient (CLI) | payer OTHER, SELFPAY ==
--- NOTE | ~2021-10-07 | US_ITS ---
US breast RT limited 10/07/2021 13:23 Indication: Follow-up right breast mass Procedure: High-resolution Limited ultrasound of the right breast Comparison: 03/02/2021 Findings: At 10:00, 2 cm from the nipple there is a cystic mass measuring up to 6 mm maximum dimensio n which appears to be contiguous with a duct on the longitudinal image, possibly focally dilated duct or adjacent cyst. No suspicious masses to suggest malignancy. Impression: 1: Benign-appearing 6 mm cystic mass of the right breast at 10:00, 2 cm from the nipple. No sonograph ic evidence for malignancy. Routine yearly screening mammogram and regular clinical breast examination are recommended. BI-RADS CATEGORY 2 - BENIGN FINDINGS Reviewed, dictated and finalized at location A. Impression: 1: Benign-appearing 6 mm cystic mass of the right breast at 10:00, 2 cm from th e nipple. No sonographic evidence for malignancy. Routine yearly screening mammogram and regular clinical breast examination are recommended. BI-RADS CATEGORY 2 - BENIGN FINDINGS
== END 2021-10-07 12:36 | disposition home or self-care (01) ==
PROVIDERS: PCP Nurse Practitioner Family; Visit Provider Obstetrics & Gynecology
DX: R92.8 Other abnormal and inconclusive findings on diagnostic imaging of breast (principal); N63.11 Unspecified lump in the right breast, upper outer quadrant
CPT/HCPCS: 76642

== ENCOUNTER 2021-10-23 10:33 | Emergency (ER) | payer OTHER, SELFPAY ==
--- NOTE | 2021-10-23 10:40 | ED.URI ---
HPI - URI/Sore Throat General Chief Complaint: Upper Respiratory Infection Stated Complaint: cough,ear pain Time Seen by Provider: 10/23/21 10:40 Source: patient and RN notes reviewed Mode of arrival: ambulatory Limitations: no limitations History of Present Illness HPI Narrative: 46-year-old female presents to the [facility] with complaints of cough and right ear pain. Patient reports that she has had a cough for the last 6 weeks, the last week and a half has developed postnasal drip, worsening cough and right ear pain. Has taken allergy medication. First thought 6 weeks ago that it was her allergies acting up. Denies any fevers, nausea, vomiting or diarrhea. Denies headaches currently. Patient does take lisinopril daily for her blood pressure, currently under treatment for blood pressure issues Denies chest pain or shortness of breath Reports that her albuterol inhaler that she was prescribed a year ago helps her coughing MD elicited complaint: cough Related Data Allergies Allergy/AdvReac Type Severity Reaction Status Date / Time No Known Allergies Allergy Verified 10/23/21 10:52 Review of Systems Review of Systems: All systems reviewed & are unremarkable except as noted in HPI and below Constitutional: Constitutional: Reports no additional constitutional complaints, Denies chills and Denies fever(s) Eyes: Eyes: Reports no additional eye complaints ENT: Reports as per HPI and Reports otalgia Cardiovascular: Cardiovascular: Reports no additional cardiovascular complaints Respiratory: Respiratory: Reports as per HPI and Reports cough Gastrointestinal: Gastrointestinal: Reports no additional gastrointestinal complaints Musculoskeletal: Musculoskeletal: Reports no additional musculoskeletal complaints Integumentary/Breasts: Skin/Breast: Reports system reviewed and no additional complaints, except as docu Neurologic: Reports system reviewed and no additional complaints, except as documented Psychiatric: Psychiatric: Reports no additional psychiatric complaints Allergic/Immunologic: Allergic/Immunologic: Reports no additional allergic/immunologic complaints PMFSH Past Medical History Medical History Abdominal discomfort in left upper quadrant Carpal tunnel syndrome on both sides Elevated blood pressure reading in office without diagnosis of hypertension Elevated fasting glucose Elevated WBC count Encounter to establish care Environmental and seasonal allergies Hypertension Left ankle pain Lumbago with sciatica, right side Microscopic hematuria Mixed hyperlipidemia Recent URI Surgical History Surgical History delivery delivered H/O excision of mass 11/18/2019: 4cm back mass excision History of cholecystectomy History of D&C History of foot surgery Left Foot April 2021 History of prior ablation treatment Hx of hysterectomy 2019 Family History Family History Father Diabetes mellitus Sibling Asthma Mother Diabetes mellitus Other Cancer Hypertension Social History Social History Social History: . 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 There is no relevant family history pertinent to the patient complaint. Exam Const: General: healthy appearing, no acute distress and alert Nutritional Appearance: w
[2021-10-23 10:43] VITALS: BP 174/80; PULSE 78; RESP 18; TEMP 36.6; O2SAT 99
[2021-10-23 11:23] VITALS: BP 150/80
== END 2021-10-23 11:23 | disposition home or self-care (01) ==
PROVIDERS: Emergency Provider Nurse Practitioner; PCP Nurse Practitioner Family
DX: J20.9 Acute bronchitis, unspecified (principal); E78.2 Mixed hyperlipidemia; I10 Essential (primary) hypertension
CPT/HCPCS: 99213; G0463

== ENCOUNTER 2022-04-09 14:15 | Emergency (ER) | payer OTHER, SELFPAY ==
[2022-04-09 15:33] VITALS: BP 178/77; PULSE 75; RESP 18; TEMP 36.5; O2SAT 100
--- NOTE | 2022-04-09 15:46 | ED.GENADULT ---
HPI - General Adult General Chief complaint: Upper Respiratory Infection Stated complaint: sorethroat,cough,congestion Time Seen by Provider: 04/09/22 15:47 Source: patient Mode of arrival: ambulatory Limitations: no limitations History of Present Illness HPI narrative: 47-year-old female patient presents to the [facility] with complaints of sore throat, cough, congestion and runny nose. Denies fevers, body aches or chills. Denies abdominal pain, nausea, vomiting or diarrhea done denies chest pain or shortness of breath. Patient states she did do a COVID test prior to arrival and was negative. Patient states she has had symptoms now for about 5 days Related Data Allergies Allergy/AdvReac Type Severity Reaction Status Date / Time No Known Allergies Allergy Verified 12/30/21 08:13 Review of Systems Review of Systems: CONSTITUTIONAL: Denies fever, chills, or sweats. EYES: Denies visual changes, redness, or discharge. ENT: positive rhinorrhea, congestion, sore throat, and leftotalgia. CARDIOVASCULAR: Denies chest pain, palpitations, or edema. RESPIRATORY: positive cough , denies dyspnea. GASTROINTESTINAL: Denies abdominal pain, nausea, vomiting, or diarrhea. GENITOURINARY: Denies dysuria or hematuria. SKIN: Denies rash or itching. MUSCULOSKELETAL: Denies back pain, joint pain, or myalgia. NEUROLOGIC: Denies headache, numbness, or weakness. PSYCHIATRIC: Denies anxiety or depression. PENDING SALE TO [facility] Past Medical History Medical History Abdominal discomfort in left upper quadrant BMI 35.0-35.9,adult Carpal tunnel syndrome on both sides Elevated blood pressure reading in office without diagnosis of hypertension Elevated fasting glucose Elevated WBC count Encounter to establish care Environmental and seasonal allergies Hypertension Left ankle pain Lumbago with sciatica, right side Microscopic hematuria Mixed hyperlipidemia Recent URI Surgical History Surgical History delivery delivered H/O excision of mass 11/18/2019: 4cm back mass excision History of cholecystectomy History of D&C History of foot surgery Left Foot April 2021 History of prior ablation treatment Hx of hysterectomy 2019 Family History Family History Father Diabetes mellitus Sibling Asthma Mother Diabetes mellitus Other Cancer Hypertension Social History Social History Social History: . 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 There is no relevant family history pertinent to the presenting complaint. Exam Narrative: GENERAL: Well-appearing, well-nourished, and in no acute distress. HEAD: Normocephalic, atraumatic. EYES: PERRLA and EOMI. ENT: Nares clear, no rhinorrhea or epistaxis. Mucous membranes moist. posterior pharynx with erythema present. No exudates or lesions present. No tonsillar enlargement noted. Bilateral TMs are clear no erythema or foreign bodies the canal. NECK: Supple. No lymphadenopathy CHEST: Clear to auscultation. No respiratory distress. HEART: Regular rate and rhythm. No murmur heard. Normal peripheral pulses. ABDOMEN: Soft, nontender, nondistended, normal active bowel sounds. EXTREMITIES: Normal range of motion. No edema. SKIN: War
== END 2022-04-09 16:18 | disposition home or self-care (01) ==
PROVIDERS: Emergency Provider Nurse Practitioner Family; PCP Nurse Practitioner Family
DX: J06.9 Acute upper respiratory infection, unspecified (principal); R05.9 Cough, unspecified; I10 Essential (primary) hypertension; E78.2 Mixed hyperlipidemia
CPT/HCPCS: 87081; 87880; 99213; G0463

== ENCOUNTER → 2022-06-29 07:50 | Outpatient (CLI) | payer OTHER, SELFPAY ==
--- NOTE | ~2022-06-29 | US_ITS ---
EXAMINATION: US abdomen limited DATE: 06/29/2022 08:11 INDICATION: Left upper quadrant pain TECHNIQUE: Limited ultrasound of the left upper quadrant is obtained. COMPARISON: None available FINDINGS: The spleen is normal in appearance and measures 10.7 cm. The left kidney measures 11.2 x 5. 4 x 5.9 cm. There is no hydronephrosis. The pleural-parenchymal echogenicity is normal. IMPRESSION: 1. No sonographic correlate for the patient's symptoms. Reviewed, dictated and finalized at location B.
== END ==
PROVIDERS: PCP Nurse Practitioner Family; Visit Provider Nurse Practitioner Family
DX: R10.12 Left upper quadrant pain (principal); R11.0 Nausea
CPT/HCPCS: 76705

== ENCOUNTER 2022-09-01 13:33 | Outpatient (CLI) | payer OTHER, SELFPAY ==
--- NOTE | 2022-09-01 16:13 | WPDPFTINT ---
PFT Procedure Performed PFT Procedure Performed Spirometry with Pre/Post Bronchodilator Plethysmography (Lung Vol) Diffusing Cap (DLCO) Flow Vol Loop PFT Interpretation This is a pulmonary function test with pre and post-bronchodilator spirometry, plethysmography and diffusing capacity. The test was performed and results interpreted in accordance with the 2019 and 2005 ATS/ERS Task Force guidelines respectively using the Global Lung Function Initiative-2012 reference equations. Patient demonstrated good effort and cooperation. Reproducibility criteria were met. The quality of the pre bronchodilator spirometry maneuver was Grade A and post bronchodilator spirometry maneuver was Grade A. Findings: Spirometry: The contour the inspiratory and expiratory flow tracing are normal. The pre bronchodilator FVC is 3.17 L, 83% predicted. The pre bronchodilator FEV1 is 2.48 L, 81% predicted. The pre bronchodilator FEV1: FVC ratio 78%. The post bronchodilator FVC is 3.14 L, representing 1% decrease. The post bronchodilator FEV1 is 2.49 L, representing no change. The post bronchodilator FEV1: FVC ratio is 79%. Plethysmography: The total lung capacity is 5.07 L, 94% predicted. The functional residual capacity is 2.17 L, 72% predicted. The residual volume is 1.67 L, 91% predicted. Diffusing capacity: The diffusing capacity unadjusted for hemoglobin and carboxyhemoglobin is 22.6, 95% predicted. The diffusing capacity adjusted for alveolar volume is 6.05, 133% predicted.Spirometry: Impression: The spirometry is normal without evidence of an obstructive abnormality. There is no significant improvement after inhaling a single dose of albuterol. The lung volumes are normal. The diffusing capacity is normal. There are no prior studies for comparison
== END 2022-09-01 13:34 | disposition home or self-care (01) ==
LOC: ANHPFT 13:34
PROVIDERS: PCP Nurse Practitioner Family; Visit Provider Nurse Practitioner Family
DX: R05.9 Cough, unspecified (principal); R06.09 Other forms of dyspnea
CPT/HCPCS: 94060; 94726; 94729

== ENCOUNTER 2022-09-14 12:06 | Emergency (ER) | payer OTHER, SELFPAY ==
[2022-09-14 12:10] VITALS: BP 172/75; PULSE 67; RESP 16; TEMP 36.4; O2SAT 100
--- NOTE | 2022-09-14 12:31 | ED.NAVMDI ---
HPI - Nausea/Vomiting/Diarrhea General Chief complaint: Nausea/Vomiting/Diarrhea Stated complaint: Rt Ear Irritation,Nausea Time Seen by Provider: 09/14/22 12:22 Source: patient and RN notes reviewed Mode of arrival: ambulatory Limitations: no limitations History of Present Illness HPI Narrative: Patient presents today complaining of 4 day history of nausea. States right ear pain started at the same time, but has since resolved. She denies any additional symptoms to include vomiting, diarrhea, abdominal pain, fever. History of hysterectomy. Denies any recent sick contacts. Her food intake has decreased due to nausea. Denies history of GERD. Related Data Allergies Allergy/AdvReac Type Severity Reaction Status Date / Time No Known Allergies Allergy Verified 09/14/22 12:15 Review of Systems Review of Systems: CONSTITUTIONAL: Denies body aches, fever, chills, or sweats. EYES: Denies visual changes, redness, or discharge. ENT: Denies rhinorrhea, congestion, sore throat, or otalgia. CARDIOVASCULAR: Denies chest pain, palpitations, or edema. RESPIRATORY: Denies cough or dyspnea. GASTROINTESTINAL: Denies abdominal pain, vomiting, or diarrhea.+ nausea GENITOURINARY: Denies dysuria or hematuria. SKIN: Denies rash, itching, or wounds. MUSCULOSKELETAL: Denies back pain, joint pain, or myalgia. NEUROLOGIC: Denies headache, numbness, tingling, or weakness. PSYCH: Denies depression or anxiety. [facility] Past Medical History Medical History Abdominal discomfort in left upper quadrant BMI 35.0-35.9,adult BMI 37.0-37.9, adult Carpal tunnel syndrome on both sides Elevated blood pressure reading in office without diagnosis of hypertension Elevated fasting glucose Elevated WBC count Encounter to establish care Environmental and seasonal allergies Hypertension Left ankle pain Lumbago with sciatica, right side LUQ pain Microscopic hematuria Mixed hyperlipidemia Nausea Prediabetes Recent URI Wheezing Surgical History Surgical History delivery delivered H/O excision of mass 11/18/2019: 4cm back mass excision History of cholecystectomy History of D&C History of foot surgery Left Foot April 2021 History of prior ablation treatment Hx of hysterectomy 2019 Family History Family History Father Diabetes mellitus Sibling Asthma Mother Diabetes mellitus Other Cancer Hypertension Social History Social History Social History: . 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 Please see nursing chart for further information. There is no relevant family history pertinent to the presenting complaint Exam Narrative: GENERAL: Well-appearing, well-nourished, and in no acute distress. HEAD: Normocephalic, atraumatic. EYES: EOMI. No redness or drainage. Conjunctivae normal. ENT:
== END 2022-09-14 12:38 | disposition home or self-care (01) ==
PROVIDERS: Emergency Provider Nurse Practitioner; PCP Nurse Practitioner Family
DX: B34.9 Viral infection, unspecified (principal); I10 Essential (primary) hypertension; E78.2 Mixed hyperlipidemia; R73.03 Prediabetes
CPT/HCPCS: 99213; G0463

== ENCOUNTER 2022-11-09 09:54 | Emergency (ER) | payer OTHER, SELFPAY ==
[2022-11-09 10:07] VITALS: BP 157/78; PULSE 72; RESP 20; TEMP 36.6; O2SAT 100
--- NOTE | 2022-11-09 10:23 | ED.URI ---
HPI - URI/Sore Throat General Chief Complaint: Upper Respiratory Infection Stated Complaint: cough,congestion Time Seen by Provider: 11/09/22 10:17 Source: patient and RN notes reviewed Mode of arrival: ambulatory Limitations: no limitations History of Present Illness HPI Narrative: Patient presents today complaining of 3 day history of cough, congestion, sore throat, sinus pressure, fatigue. Denies fever, shortness of breath, wheezing. Currently rates her sore throat 03/15 and has been using TheraFlu without much relief. 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 She has taken 2 COVID-19 test that are negative. Related Data Allergies Allergy/AdvReac Type Severity Reaction Status Date / Time No Known Allergies Allergy Verified 11/09/22 10:24 Review of Systems Review of Systems: CONSTITUTIONAL: Denies body aches, fever, chills, or sweats.+ see EYES: Denies visual changes, redness, or discharge. ENT: Denies rhinorrhea, or otalgia.+ congestion, sinus pressure, sore throat CARDIOVASCULAR: Denies chest pain, palpitations, or edema. RESPIRATORY: Denies dyspnea.+ cough GASTROINTESTINAL: Denies abdominal pain, nausea, vomiting, or diarrhea. GENITOURINARY: Denies dysuria or hematuria. SKIN: Denies rash, itching, or wounds. MUSCULOSKELETAL: Denies back pain, joint pain, or myalgia. NEUROLOGIC: Denies headache, numbness, tingling, or weakness. PSYCH: Denies depression or anxiety. ON LICENSE OF [facility] Past Medical History Medical History Abdominal discomfort in left upper quadrant BMI 35.0-35.9,adult BMI 37.0-37.9, adult Carpal tunnel syndrome on both sides Elevated blood pressure reading in office without diagnosis of hypertension Elevated fasting glucose Elevated WBC count Encounter to establish care Environmental and seasonal allergies Hypertension Left ankle pain Lumbago with sciatica, right side LUQ pain Microscopic hematuria Mixed hyperlipidemia Nausea Prediabetes Recent URI Right knee pain Wheezing Surgical History Surgical History delivery delivered H/O excision of mass 11/18/2019: 4cm back mass excision History of cholecystectomy History of D&C History of foot surgery Left Foot April 2021 History of prior ablation treatment Hx of hysterectomy 2019 Family History Family History Father Diabetes mellitus Sibling Asthma Mother Diabetes mellitus Other Cancer Hypertension Social History Social History Social History: . 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 Please see nursing chart for further information. There is no relevant family history pertinent to the presenting complaint Exam Narrative: GENERAL: Mildly ill-appearing, well-nourished, and in no acute distress. HEAD: Normocephalic, atraumatic. EYES: EOMI. No redness or drainage. Conjunctiva
== END 2022-11-09 10:31 | disposition home or self-care (01) ==
PROVIDERS: Emergency Provider Nurse Practitioner; PCP Nurse Practitioner Family
DX: J06.9 Acute upper respiratory infection, unspecified (principal); I10 Essential (primary) hypertension; E78.2 Mixed hyperlipidemia; R73.03 Prediabetes
CPT/HCPCS: 87804; 99213; G0463

== ENCOUNTER 2023-01-09 07:48 | Outpatient (CLI) | payer OTHER, SELFPAY ==
--- NOTE | ~2023-01-09 | MR_ITS ---
MRI of the lumbar spine Clinical History: Back pain Technique: Axial T2-weighted images, and sagittal T1-weighted, T2-weighted, and T2 fat-sat images wer e acquired. COMPARISON: 10/27/2020 Findings: There is no fracture or sublocation of the lumbar spine. Vertebral bodies maintain normal h eight and alignment. No suspicious bone marrow signal abnormality seen. At L1-L2, L2-L3, L3-L4, there is no disc bulge or herniation. There are mild to moderate facet joint degenerative changes at these levels. No spinal canal stenosis or neural foraminal narrowing at these levels. At L4-L5, there is mild disc bulge with moderate facet arthropathy. No central canal stenosis. There is minimal left neural foraminal narrowing. Right neural foramen preserved. At L5-S1, there is right paracentral disc bulge/protrusion. This may focally impinges the descending right S1-S2 level nerve root. No central canal stenosis present. There is mild bilateral neural vianey inal narrowing. Paravertebral soft tissues are unremarkable. Impression: Right paracentral disc bulge/protrusion at L5-S1, which may focally impinge the descending right S1-S 2 level nerve root. Additional minimal degenerative changes, as above. Reviewed, dictated and finalized at location . [facility] Impression: Right paracentral disc bulge/protrusion at L5-S1, which may focally impinge the descending right S1-S2 level nerve root. Additional minimal degenerative changes, as above.
== END 2023-01-09 07:49 | disposition home or self-care (01) ==
PROVIDERS: PCP Nurse Practitioner Family; Visit Provider Nurse Practitioner Family
DX: M79.604 Pain in right leg (principal); M79.605 Pain in left leg; M51.27 Other intervertebral disc displacement, lumbosacral region
CPT/HCPCS: 72148

== ENCOUNTER → 2023-03-08 15:10 | Outpatient (CLI) | payer OTHER, SELFPAY ==
--- NOTE | ~2023-03-08 | US_ITS ---
EXAMINATION: US soft tissue lower back DATE: 03/08/2023 15:25 INDICATION: Localized swelling, mass and lump, trunk. Right flank lump. TECHNIQUE: Multiple grayscale and Doppler ultrasound images of the lower back and right flank were ob tained. COMPARISON: Lumbar spine MRI 01/09/2023 FINDINGS: There is no abnormal mass in the patient's area of concern in right flank. IMPRESSION: 1. No abnormal mass in the patient's area of concern in right flank. Reviewed, dictated and finalized at location E. L CONTROL COORDINATOR
== END ==
PROVIDERS: PCP Neurological Surgery; Visit Provider Nurse Practitioner Family
DX: R22.2 Localized swelling, mass and lump, trunk (principal)
CPT/HCPCS: 76705

== ENCOUNTER → 2023-03-28 16:16 | Outpatient (CLI) | payer OTHER, SELFPAY ==
--- NOTE | ~2023-03-28 | MM_ITS ---
EXAMINATION: MM screening arsenio BI w maria m HISTORY: Screening mammogram TECHNIQUE: Craniocaudal and mediolateral oblique 3-D tomosynthesis images were obtained and synthetic 2-D images were generated. CAD analysis was submitted and interpreted. COMPARISON: 03/02/2021, 04/17/2020 BREAST PARENCHYMAL COMPOSITION: The breasts are heterogeneously dense, which may obscure small masses . FINDINGS: Scattered benign-appearing calcifications are present. No suspicious mass, calcification, o r architectural distortion are identified in either breast to suggest malignancy. There has been no s uspicious interval change. IMPRESSION: 1. No mammographic evidence of malignancy. 2. Recommend routine screening mammography in one year. BI-RADS Category 2: Benign finding(s). Reviewed, dictated and finalized at location A. ENT CREATION MANAGER
== END ==
PROVIDERS: PCP Obstetrics & Gynecology; Visit Provider Obstetrics & Gynecology
DX: Z12.31 Encounter for screening mammogram for malignant neoplasm of breast (principal)
CPT/HCPCS: 77063; 77067

== ENCOUNTER 2023-08-30 13:37 | Outpatient (CLI) | payer OTHER, SELFPAY ==
--- NOTE | 2023-08-30 13:47 | ECG_ITS ---
Test Date: 2023-08-30 13:58:28 Measurements Intervals [place] Rate: 73 P: 32 W[place]: 137 QRS: 23 QRSD: 77 T: 46 QT: 376 QTc: 416 Interpretive Statements SINUS RHYTHM LOW QRS VOLTAGE IN PRECORDIAL LEADS [QRS DEFLECTION < 1.0 mV IN CHEST LEADS] SEPTAL MYOCARDIAL INFARCTION , OF INDETERMINATE AGE [40+ ms Q WAVE IN V1/V2] No previous ECG available for comparison Electronically Signed On 08-31-2023 13:29:48 CDT by Mallorie Emerson M.D.
== END 2023-08-30 13:38 | disposition home or self-care (01) ==
PROVIDERS: PCP Nurse Practitioner Family; Visit Provider Nurse Practitioner Family
DX: R00.2 Palpitations (principal); I10 Essential (primary) hypertension
CPT/HCPCS: 93005

== ENCOUNTER 2023-09-27 07:34 | Outpatient (CLI) | payer OTHER, SELFPAY ==
--- NOTE | 2023-09-27 07:37 | ECHO_ITS ---
Patient Info Name: Lea Rachel Age: 48 years : 1975 Gender: Female Ht: 66 in Wt: 226 lbs BSA: 2.23 m2 HR: 71 bpm BP: 152 / 92 mmHg Technical Quality: Fair Exam Date: 09/27/2023 7:46 AM Exam Location: Echo Lab Patient Status: Outpatient Admit Date: 09/27/2023 Staff Ordering Physician: Gema Spencer NP Physical Design Engineer: Audra Aparicio RDCS Attending Provider: Gema Spencer NP Exam Type: CA echo doppler color flow Study Info Indications R94.31 - Abnormal electrocardiogram ECG EKG Complete two-dimensional, color flow and Doppler transthoracic echocardiogram is performed. Summary 1. Complete two-dimensional, color flow and Doppler transthoracic echocardiogram is performed. 2. Left ventricular chamber dimension is normal. 3. Left ventricular systolic function is normal, estimated at 60-65%. 4. The left ventricular diastolic function is normal. 5. E/e' 8 is minimally elevated. 6. Global longitudinal strain is abnormal at -14.9%. 7. No pulmonary hypertension, estimated pulmonary arterial systolic pressure is 21 mmHg. Left Ventricle E/e' 8 is minimally elevated. Global longitudinal strain is abnormal at -14.9%. Left ventricular chamber dimension is normal. Left ventricular systolic function is normal, estimated at 60-65%. The left ventricular diastolic function is normal. Right Ventricle Right ventricular systolic function is normal and with normal TAPSE 2.8 cm. Right ventricular chamber dimension is normal. Left Atria Left atrial chamber dimension is normal. Right Atria Right atrial chamber dimension is normal. Aortic Valve The aortic valve is trileaflet. There is no aortic valve stenosis. There is no aortic valve regurgitation. Pulmonic Valve There is no pulmonic regurgitation. Mitral Valve There is no mitral valve stenosis. There is no mitral valve regurgitation. Tricuspid Valve There is no tricuspid valve regurgitation. No pulmonary hypertension, estimated pulmonary arterial systolic pressure is 21 mmHg. Pericardium/Pleural There is no pericardial effusion. Inferior Vena Cava Normal inferior vena cava with >50% collapse upon inspiration consistent with normal right atrial pressure, 5 mmHg. Aorta The aortic root size at the sinus of Valsalva is normal. Left Ventricular Outflow Tract Name Value Normal LVOT 2D LVOT Diameter 1.97 cm LVOT Doppler LVOT Peak Velocity 123.40 cm/s LVOT Peak Gradient 6 mmHg LVOT Mean Gradient 3 mmHg LVOT VTI 24.21 cm LVOT VTI/AV VTI Ratio 0.80 LVOT Stroke Volume 73.76 ml LVOT CO 5.33 l/min LVOT CI 2.52 L/min/m2 Pulmonic Valve Name Value Normal RVOT Doppler RVOT Peak Gradient 3 mmHg PV Doppler
--- NOTE | 2023-09-27 11:00 | NEURO_ITS ---
Impression: #Non diabetic Complains of numbness of hands, right more than left. # Right Carpal Tunnel Syndrome. # No ulnar neuropathy. # Normal needle/EMG exam. Nerve Conduction Studies Anti Sensory Summary Table Stim Site NR Peak (ms) P-T Amp (?V) Site1 Site2 Delta-P (ms) Dist (cm) Adam (m/s) Left Median Anti Sensory (2-3nd Digit) Wrist 3.2 75.8 Wrist 2-3nd Digit 3.2 14.0 44 Wrist 3.2 57.2 Wrist 2-3nd Digit 3.2 14.0 44 Right Median Anti Sensory (2-3nd Digit) Wrist 4.1 26.9 Wrist 2-3nd Digit 4.1 14.0 34 Wrist 4.3 31.1 Wrist 2-3nd Digit 4.1 14.0 34 Left Radial Anti Sensory (Base 1st Digit) Wrist 2.1 28.0 Wrist Base 1st Digit 2.1 0.0 Right Radial Anti Sensory (Base 1st Digit) Wrist 2.0 30.1 Wrist Base 1st Digit 2.0 0.0 Left Ulnar Anti Sensory (5th Digit) Wrist 2.3 64.0 Wrist 5th Digit 2.3 14.0 61 Right Ulnar Anti Sensory (5th Digit) Wrist 2.1 34.2 Wrist 5th Digit 2.1 14.0 67 Motor Summary Table Stim Site NR Onset (ms) O-P Amp (mV) Site1 Site2 Delta-0 (ms) Dist (cm) Adam (m/s) Left Median Motor (Abd Poll Brev) Wrist 3.6 2.6 Elbow Wrist 4.3 26.0 60 Elbow 7.9 2.7 Right Median Motor (Abd Poll Brev) Wrist 4.4 2.7 Elbow Wrist 5.1 30.0 59 Elbow 9.5 2.5 Left Ulnar Motor (Abd Dig Minimi) Wrist 2.2 7.0 A Elbow Wrist 5.5 32.0 58 A Elbow 7.7 4.5 Right Ulnar Motor (Abd Dig Minimi) Wrist 2.2 5.6 A Elbow Wrist 5.4 31.0 57 A Elbow 7.6 5.2 F Wave Studies NR F-Lat (ms) L-R F-Lat (ms) Left Median (Mrkrs) (Abd Poll Brev) 29.45 1.60 Right Median (Mrkrs) (Abd Poll Brev) 31.05 1.60 Left Ulnar (Mrkrs) (Abd Dig Min) 28.51 0.11 Right Ulnar (Mrkrs) (Abd Dig Min) 28.39 0.11 EMG Side Muscle Nerve Root Ins Act Fibs Amp Dur Recrt Comment Right 1stDorInt Ulnar C8-T1 Nml Nml Nml Nml Nml Right Ext Indicis Radial (Post Int) C7-8 Nml Nml Nml Nml Nml Right Ext Digitorum Radial (Post Int) C7-8 Nml Nml Nml Nml Nml Right BrachioRad Radial C5-6 Nml Nml Nml Nml Nml Right PronatorTeres Median C6-7 Nml Nml Nml Nml Nml Right Abd Poll Brev Median C8-T1 Nml Nml Nml Nml Nml Right ABD Dig Min Ulnar C8-T1 Nml Nml Nml Nml Nml Left 1stDorInt Ulnar C8-T1 Nml Nml Nml Nml Nml Left Ext Indicis Radial (Post Int) C7-8 Nml Nml Nml Nml Nml Left Ext Digitorum Radial (Post Int) C7-8 Nml Nml Nml Nml Nml Left BrachioRad Radial C5-6 Nml Nml Nml Nml Nml Left PronatorTeres Median C6-7 Nml Nml Nml Nml Nml Left Abd Poll Brev Median C8-T1 Nml Nml Nml Nml Nml Left ABD Dig Min Ulnar C8-T1 Nml Nml Nml Nml Nml MTDD
== END 2023-09-27 07:35 | disposition home or self-care (01) ==
PROVIDERS: PCP Nurse Practitioner Family; Visit Provider Nurse Practitioner Family
DX: R20.0 Anesthesia of skin (principal); R20.2 Paresthesia of skin; R29.898 Other symptoms and signs involving the musculoskeletal system; R94.31 Abnormal electrocardiogram [ECG] [EKG]; G56.01 Carpal tunnel syndrome, right upper limb
CPT/HCPCS: 93306; 95886; 95911

== ENCOUNTER 2023-11-30 09:36 | Outpatient (CLI) | payer OTHER, SELFPAY ==
--- NOTE | 2023-11-30 09:51 | EST_ITS ---
Patient Info Name: Lea Rachel Age: 48 years : 1975 Gender: Female Ht: 66 in Wt: 217 lbs BSA: 2.18 m2 HR: 73 bpm BP: 148 / 73 mmHg Heart Rhythm: Sinus Rhythm Exam Date: 11/30/2023 10:01 AM Exam Location: Echo Lab Patient Status: Outpatient Admit Date: 11/30/2023 Staff Ordering Physician: Gema Spencer NP Attending Provider: Gema Spencer NP Exercise Technologist: Francisca Ayala CT Exercise Physician: Jamin Ferrer DO Exam Type: CA stress test treadmill Study Info Indications R00.2 - Palpitations A treadmill exercise stress test was performed. Summary 1. 1. Negative Regino exercise stress test for ischemic ST changes by ECG criteria. 2. 2. Good functional capacity, achieving 11.5 METs of workload. 3. 3. Baseline hypertension. 4. 4. Appropriate HR response to exercise. 5. 5. Appropriate HR recovery at 1 minute post exercise. 6. 6. No imaging with stress testing. 7. 7. Patient informed of the above results. Protocol: Regino Stress ECG Details Stage: REST Duration (min): 1 min : 4 sec Speed (mph): 0.0 Grade (%): 0 HR (bpm): 75 SBP (mmHg): 148 DBP (mmHg): 73 METS: --- Stage: REST Duration (min): 5 min : 35 sec Speed (mph): 0.0 Grade (%): 0 HR (bpm): 82 SBP (mmHg): 148 DBP (mmHg): 73 METS: --- Stage: STAGE 1 Duration (min): 1 min : 0 sec Speed (mph): 1.7 Grade (%): 10 HR (bpm): 110 SBP (mmHg): 148 DBP (mmHg): 73 METS: --- Stage: STAGE 1 Duration (min): 2 min : 0 sec Speed (mph): 1.7 Grade (%): 10 HR (bpm): 108 SBP (mmHg): 148 DBP (mmHg): 73 METS: --- Stage: STAGE 1 Duration (min): 3 min : 0 sec Speed (mph): 1.7 Grade (%): 10 HR (bpm): 110 SBP (mmHg): 179 DBP (mmHg): 75 METS: --- Stage: STAGE 2 Duration (min): 1 min : 0 sec Speed (mph): 2.5 Grade (%): 12 HR (bpm): 126 SBP (mmHg): 179 DBP (mmHg): 75 METS: --- Stage: STAGE 2 Duration (min): 2 min : 0 sec Speed (mph): 2.5 Grade (%): 12 HR (bpm): 123 SBP (mmHg): 177 DBP (mmHg): 68 METS: --- Stage: STAGE 2 Duration (min): 3 min : 0 sec Speed (mph): 2.5 Grade (%): 12 HR (bpm): 126 SBP (mmHg): 177 DBP (mmHg): 68 METS: --- Stage: STAGE 3 Duration (min): 1 min : 0 sec Speed (mph): 3.4 Grade (%): 14 HR (bpm): 135 SBP (mmHg): 175 DBP (mmHg): 71 METS: --- Stage: STAGE 3 Duration (min): 2 min : 0 sec Speed (mph): 3.4 Grade (%): 14 HR (bpm): 141 SBP (mmHg): 175 DBP (mmHg): 71 METS: --- Stage: STAGE 3 Duration (min): 3 min : 0 sec Speed (mph): 3.4 Grade (%): 14 HR (bpm): 143 SBP (mmHg): 168 DBP (mmHg): 75 METS: --- Stage: STAGE 4 Duration (min): 0 min : 45 sec Speed (mph): 4.2 Grade (%): 16 HR (bpm): 151 SBP (mmHg): 168 DBP (mmHg): 75 METS: --- Stage: RECOVERY Duration (min): 0 min : 14 sec Speed (mph): 1.5 Grade (%): 0 HR (bpm): 152 SBP (mmHg): 1
== END 2023-11-30 09:37 | disposition home or self-care (01) ==
LOC: ANHCARD 09:39
PROVIDERS: PCP Nurse Practitioner Family; Visit Provider Nurse Practitioner Family
DX: I10 Essential (primary) hypertension (principal); R00.2 Palpitations; R94.31 Abnormal electrocardiogram [ECG] [EKG]
CPT/HCPCS: 93017

== ENCOUNTER 2024-04-11 16:08 | Outpatient (CLI) | payer OTHER, SELFPAY ==
--- NOTE | ~2024-04-11 | MM_ITS ---
EXAMINATION: MM screening arsenio BI w maria m HISTORY: Screening mammogram TECHNIQUE: Craniocaudal and mediolateral oblique 3-D tomosynthesis images were obtained and synthetic 2-D images were generated. CAD analysis was submitted and interpreted. COMPARISON: No prior mammogram is available for comparison at this institution. BREAST PARENCHYMAL COMPOSITION:Not Dense. There are scattered areas of fibroglandular density. FINDINGS: No suspicious mass, calcification, or architectural distortion are identified in either edd ast to suggest malignancy. There has been no suspicious interval change. IMPRESSION: No mammographic evidence of malignancy. Recommend routine screening mammography in one year. BI-RADS Category 1: Negative Reviewed, dictated and finalized at location . 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
--- OUTSIDE RECORDS SUMMARY | 2024-04-11 16:10 | XMS_ITS | Clinical Summary ---
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 Gender Identity Not on file Sexual Orientation Not on file Obstetrics History Last Filed Vital Signs Vital Sign Reading Time Taken Comments Blood Pressure 132/84 01/03/2018 11:45 AM CDT Pulse 72 01/03/2018 11:45 AM CDT Temperature - - Respiratory Rate - - Oxygen Saturation 98% 01/03/2018 11:45 AM CDT Inhaled Oxygen Concentration - - Weight 88.1 kg (194 lb 2.1 oz) 01/03/2018 11:45 AM CDT Height 167 cm (5' 5.75 ) 01/03/2018 11:45 AM CDT Body Mass Index 31.57 01/03/2018 11:45 AM CDT Plan of Treatment Health Maintenance Due Date Last Done Comments Breast Cancer Screening-Mammogram 1975 Colon Cancer Screening-Colonoscopy 1975 Depression Screening 1975 Hepatitis C Screening 1975 DTaP/Tdap/Td Vaccine (1 - Tdap) 1986 Hepatitis B Screening 1993 Regular Well Visit/Exam 18-64 1993 Cervical Cancer Screening 06/07/2018 06/07/2017 Covid-19 Vaccine ( season) 2023 12/24/2021, 01/02/2021, 04/06/2020, Additional history exists Influenza Vaccine (#1) 2023 2, 01/02/2021, 11/30/2017, Additional history exists Pneumococcal vaccine <65 Aged Out No longer eligible based on patient's age to complete this topic Procedures Procedure Name Priority Date/Time Associated Diagnosis Comments THINPREP HEALTH AND SAFETY REPRESENTATIVE PAP (IMAGE GUIDED) LIQUID-BASED PREP Routine 06/07/2017 2:09 PM CDT from Last 3 Months or Most Recently Relevant to Health Maintenance Results * ThinPrep Gynecologic Pap Test (Image-guided), Liquid-based Preparation (06/07/2017 2:09 PM CDT) [facility]ICAL INFORMATION [facility] Comment:Information not prov ided LMP: [facility]ULTS Comment:INFORMATION NOT PROV IDED PREV. PAP: [facility] - EC HISTORICAL RESULTS Comment:INFORMATION NOT PROV IDED PREV. BX: [facility]ULTS Comment:INFORMATION NOT PROV IDED SOURCE: [facility] - [facility] HISTORICAL RESULTS Comment:Cervix STATEMENT OF ADEQUACY: [facility] - [facility] HISTORICAL RESULTS Comment: Satisfactory for evaluation. Endocervical/transformation zone component present. Age and/or menstrual status not provided INTERPRETATION/RESU LT: [facility] - [facility] HISTORICAL RESULTS Comment:Negative for intraep ithelial lesion or malignancy. COMMENT: [facility] - [facility] HISTORICAL RESULTS Comment: This Pap test has been evaluated with computer assisted technology. WALL MAN: [facility] HISTORICAL RESULTS Comment: MMW, CT(ASCP) CT screening location: [place] [address] [place] [address] COMMENT [facility] - [facility] HISTORICAL RESULTS Comment: EXPLANATORY NOTE: The Pap is a screening test for cervical cancer. It is not a diagnostic test and is subject to false negative and false positive results. It is most reliable when a satisfactory sample, regularly obtained, is submitted with relevant clinical findings and history, and when the Pap result is evaluated along with historic and current clinical information. 06/07/2017 2:09 PM CDT 06/13/2017 10:25 PM CDT Narrative [facility] - [facility] HISTORICAL RESULTS - 06/13/2017 9:55 PM CDT 0 PERFORMING LAB: [facility] [address] [facility] [address] Saul Weber MD us Alexandr Castro MD LAB PATHOLOGY ORDERAB LES Final Result [facility] from Last 3 Months or Most Recently Relevant to Health Maintenance Insurance [employer] PPO Care Teams Computer Forensic Examiner Relationship Specialty Start Date End Date No, Physician PCP - General 10/09/23
--- OUTSIDE RECORDS SUMMARY | 2024-04-11 16:10 | XMS_ITS | Clinical Summary ---
Author Organization [facility] Address [facility] [place] [address] Care Team Providers Care Student Support Advisor Name Role Phone Gema SpencerNEISHA Primary Care Provider [phone] Allergies No known active allergies Medications lisinopril 10 MG tablet Take 1 tablet by mouth daily. Active ibuprofen 800 MG tablet Take 800 mg by mouth every 6 (six) hours as needed for Pain. Active acetaminophen 325 MG tablet Take 650 mg by mouth every 6 (six) hours as needed for Pain. Active zinc gluconate 50 MG Tab Take 1 tablet by mouth daily. Active Cholecalciferol (VITAMIN D) 50 MCG (2000 UT) Tab Take 1 tablet by mouth daily. Active Turmeric 500 MG Tab Take 1 tablet by mouth daily. Active pseudoephedrine 30 MG tablet Take 30 mg by mouth every 4 (four) hours as needed for Congestion. Active fexofenadine 180 MG tablet Take 180 mg by mouth daily. Active Active Problems No known active problems Immunizations Name Administration Dates Next Due PFIZER COVID-19 (ORIGINAL FO RMULATION, PURPLE CAP) mRNA, LNP-S, PF, 30 MCG/0.3 ML DOSE 04/06/2020,03/14/2020 Family History Medical History Relation Comments No Known Problems Brother Diabetes Father Hypertension Father Diabetes Mother Hypertension Mother No Known Problems Sister 1 No Known Problems Sister 2 No Known Problems Sister 3 Relation Status Comments Brother Alive Father Alive Mother Alive Sister 1 Alive Sister 2 Alive Sister 3 Alive Social History Tobacco Use Types Packs/Day Years Used Date Smoking Tobacco: Never Smokeless Tobacco: Never Alcohol Use Standard Drinks/Week Comments Never 0 (1 standard drink = 0.6 oz pur e alcohol) Comments No Sex and Gender Information Value Date Recorded Sex Assigned at Not on file Legal Sex Female 3:13 PM LUMP INSPECTOR Gender Identity Female 03/31/2021 8:18 AM LUMP INSPECTOR Sexual Orientation Straight 03/31/2021 8: 18 AM LUMP INSPECTOR Last Filed Vital Signs Vital Sign Reading Time Taken Comments Blood Pressure 158/82 04/06/2021 11:35 AM LUMP INSPECTOR Pulse 78 04/06/2021 11:35 AM LUMP INSPECTOR Temperature 36.4 C (97.6 F) 04/06/2021 11:35 AM LUMP INSPECTOR Respiratory Rate 16 04/06/2021 11:3 5 AM LUMP INSPECTOR Oxygen Saturation 96% 04/06/2021 11: 35 AM LUMP INSPECTOR Inhaled Oxygen Concentration - - Weight 99.3 kg (218 lb 14.7 oz) 04/06/2021 6:00 AM LUMP INSPECTOR Height 167.6 cm (5' 6 ) 04/06/2021 6:00 AM LUMP INSPECTOR Body Mass Index 35.33 04/06/2021 6:00 AM LUMP INSPECTOR Plan of Treatment Health Maintenance Due Date Last Done Comments Colorectal Cancer Screening Colonoscopy (10 Years) 1975 Annual Physical 1978 Hepatitis C 1993 DTaP, Tdap and Td Vaccines ( 1 - Tdap) 1994 Hepatitis B Vaccines (1 of 3 - 19+ 3-dose series) 1994 Mammogram Screening 2015 COVID-19 Vaccine (3 - 2023-2 5 season) 2023 04/06/2020, 03/14/2020 Influenza Adult (#1) 2023 12/18/2016 Meningococcal B Vaccine Aged Out No l onger eligible based on patient's age to complete this topic Meningococcal Vaccine Aged Out No issac miesha eligible based on patient's age to complete this topic Pneumococcal Vaccine: Pediatrics (0 to 5 Years) and At-Risk Patients (6 to 64 Years) Aged Out No longer eligible b ased on patient's age to complete this topic RSV Immunizations Under 20 Months Aged Out No longer eligible b ased on patient's age to complete this topic Insurance [employer] Care Teams Student Support Advisor Relationship Specialty Start Date End Date Gema Spencer APNP [address] [id number] PCP - General Nurse Practitioner Family 04/06/21
--- OUTSIDE RECORDS SUMMARY | 2024-04-11 16:10 | XMS_ITS | Referral Summary ---
Author Organization 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 Gender Identity Not on file Sexual Orientation Not on file Last Filed Vital Signs Vital Sign Reading [...] 01/03/2018 11:45 AM CDT Plan of Treatment Not on file Procedures Procedure Name Priority Date/Time Associated Diagnosis Comments THINPREP JOB RECRUITER PAP (IMAGE GUIDED) LIQUID-BASED PREP Routine 06/07/2017 2:09 PM CDT from Last 3 Months or Most Recently Relevant to Health Maintenance Results * ThinPrep Gynecologic Pap Test (Image-guided), Liquid-based Preparation (06/07/2017 2:09 PM CDT) Pathologist [facility] HISTORICAL RESULTS Comment:Information not prov ided LMP: [facility] Comment:INFORMATION NOT PROV IDED PREV. PAP: [facility]ULTS Comment:INFORMATION NOT PROV IDED PREV. BX: [facility]ULTS Comment:INFORMATION NOT PROV IDED SOURCE: [facility] Comment:Cervix STATEMENT OF ADEQUACY: [facility] Comment: Satisfactory for evaluation. Endocervical/transformation zone component present. Age and/or menstrual status not provided INTERPRETATION/RESU LT: [facility] RESULTS Comment:Negative for intraep ithelial lesion or malignancy. COMMENT: [facility] Comment: This Pap test has been evaluated with computer assisted technology. PRIZE JACKER: [facility] HISTORICAL RESULTS Comment: MMW, CT(ASCP) CT screening location: [place] [address] [place] [address] COMMENT [facility] - [facility] HISTORICAL RESULTS Comment: EXPLANATORY NOTE: The Pap [...] PM CDT 06/13/2017 10:25 PM CDT Narrative [facility] - [facility] HISTORICAL RESULTS - 06/13/2017 9:55 PM CDT 0 PERFORMING LAB: , [facility] [place] [address] [facility] [phone] Saul Weber MD Alexandr Castro MD LAB PATHOLOGY ORDERAB LES Final Result [facility] RESULTS from Last 3 Months or Most Recently Relevant to Health Maintenance Insurance [employer] PPO Care Teams Collar Setter Relationship Specialty Start Date End Date No, Physician PCP - General 10/09/23
== END 2024-04-11 16:09 | disposition home or self-care (01) ==
LOC: ANHIMG 16:09
PROVIDERS: PCP Nurse Practitioner Family; Visit Provider Obstetrics & Gynecology
DX: Z12.31 Encounter for screening mammogram for malignant neoplasm of breast (principal)
CPT/HCPCS: 77063; 77067

== ENCOUNTER 2024-05-03 00:59 | Day surgery (SDC) | payer OTHER, SELFPAY ==
[2024-02-21 15:59] VITALS: BMI 35.2
[2024-04-22 11:38] VITALS: BMI 35.5
--- NOTE | 2024-04-22 11:40 | PC.NURSE ---
Spoke with pt. regarding rescheduled colonoscopy. Pt. states that no change in health history and she understands prep instructions.
[2024-05-03 13:13] VITALS: BP 144/80; PULSE 79; RESP 16; TEMP 36.4; O2SAT 99; BMI 35.7
[2024-05-03] MEDS: LACTATED RINGERS 1,000 ML 150 ML IV CONT (13:28)
--- NOTE | 2024-05-03 13:37 | WPDANESEPPF ---
Anes - Initial Pre Proc Eval Procedure: Operation Date: 05/03/24 14:30 Proposed Procedures p Screening Colonoscopy - Marek Lauren MD Date/Time: 05/03/24 13:37 Surgeon: Marek Lauren MD Pre Op Diagnosis: Neoplasm screening Patient Data Age: 49 Gender: F Height: 1.68 m Weight: 100.5 kg Last Vital Signs Temp 36.4 C L 05/03/24 13:13 Pulse 79 05/03/24 13:13 Resp 16 05/03/24 13:13 BP 144/80 H 05/03/24 13:13 Pulse Ox 99 05/03/24 13:13 O2 Del Method Room Air 05/03/24 13:13 Allergies Allergy/AdvReac Type Severity Reaction Status Date / Time No Known Allergies Allergy Verified 05/03/24 13:10 Home Medications ?Medication ?Instructions ?Recorded ?Confirmed ?Type inhalational spacing device (Space #1 ea 10/23/21 08/29/23 Rx Chamber) albuterol sulfate 90 mcg/actuation 1 - 2 inh inhalation Q4-6H PRN 04/29/22 02/21/24 Rx aerosol inhaler shortness of breath or wheezing #8.5 grams beclomethasone dipropionate 80 1 inh inhalation Q12H #10.6 grams 05/15/23 05/03/24 Rx mcg/actuation HFA breath activated aerosol (Qvar RediHaler) meloxicam 15 mg tablet 15 mg PO DAILY PRN pain #30 tabs 06/05/23 05/03/24 Rx tizanidine 4 mg tablet 2 - 4 mg (0.5 - 1 x 4 mg) PO TID 06/05/23 02/21/24 Rx PRN muscle spasticity #90 tabs albuterol sulfate 90 mcg/actuation 2 inh inhalation Q4H PRN shortness 07/11/23 02/21/24 Rx aerosol inhaler of breath or wheezing #6.7 grams montelukast 10 mg tablet 10 mg PO QHS #14 tabs 07/11/23 05/03/24 Rx (Singulair) amlodipine 10 mg tablet 10 mg PO DAILY #30 tabs 10/19/23 05/03/24 Rx hydrochlorothiazide 12.5 mg tablet 12.5 mg PO DAILY #30 tabs 11/28/23 05/03/24 Rx gabapentin 300 mg capsule See Rx Instructions PO BID #90 caps 01/08/24 05/03/24 Rx lisinopril 20 mg tablet 20 mg PO DAILY #90 tabs 04/02/24 05/03/24 Rx progesterone micronized 100 mg 100 mg PO QPM 04/22/24 05/03/24 History capsule Patient hx anesthesia problems: none Family hx anesthesia problems: none Results Review: All pre-operative results and documents have been reviewed as part of the pre-operative evaluation. [facility] Past Medical History Medical History (Updated 11/10/23 @ 08:48 by Gema Spencer NP) Seasonal allergies Abnormal EKG Heart palpitations Numbness and tingling in both hands Weakness of both hands Mass of subcutaneous tissue of back Low back pain radiating to both legs Right knee pain Nausea LUQ pain BMI 37.0-37.9, adult Prediabetes Wheezing BMI 35.0-35.9,adult Microscopic hematuria Elevated fasting glucose Left ankle pain Mixed hyperlipidemia Hypertension Abdominal discomfort in left upper quadrant Elevated WBC count Elevated blood pressure reading in office without diagnosis of hypertension Carpal tunnel syndrome on both sides Lumbago with sciatica, right side Encounter to establish care Environmental and seasonal allergies Recent URI Surgical History Surgical History History of foot surgery Left Foot April 2021 Hx of hysterectomy 2019 H/O excision of mass 11/18/2019: 4cm back mass excision History of prior ablation treatment History of D&C History of cholecystectomy delivery delivered Family History Family History Father Diabetes mellitus Sibling Asthma Mother Diabetes mellitus Other Cancer Hypertension Social History Social History Social History: . 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 Gender identity (if verbalized by the patient): Female Sexual Orientation (if Verbalized by the Patient): Straight or Heterosexual Spiritual care concerns: No Anes - Eval Final PreProcedure Day of Procedure 05/03/24 13:37 Patient weight: obese Heart: regular rate and rhythm Lungs: clear to auscultation Airway: Mallampati scale class II Neurological: alert and oriented Last oral intake: >/= 8 hours ASA classification: III Emergent: no Anesthetic plan: proceed Anesthesia type and monitoring: general GIVS and standard monitoring Results Review: All pre-operative results and documents have been reviewed as part of the pre-operative evaluation. Informed Consent: The patient's anesthetic plan and its attendant risks and benefits were discussed with the patient/family/POA. Questions were solicited and answers provided to the satisfaction of the patient/family/POA.
--- NOTE | 2024-05-03 14:13 | PM.HPGS ---
History of Present Illness History of Present Illness Consent: Risks, benefits, and alternatives have been discussed and questions answered. Patient agrees to proceed with procedure. Chief complaint: Neoplasm screening Narrative: Lea Rachel is a 49 year old female here for first screening colonoscopy Review of Systems Review of Systems: All systems reviewed & are unremarkable except as noted in HPI and below PMFSH Past Medical History Medical History (Updated 05/03/24 @ 14:15 by Marek Lauren MD) Colon cancer screening Seasonal allergies Abnormal EKG Heart palpitations Numbness and tingling in both hands Weakness of both hands Mass of subcutaneous tissue of back Low back pain radiating to both legs Right knee pain Nausea LUQ pain BMI 37.0-37.9, adult Prediabetes Wheezing BMI 35.0-35.9,adult Microscopic hematuria Elevated fasting glucose Left ankle pain Mixed hyperlipidemia Hypertension Abdominal discomfort in left upper quadrant Elevated WBC count Elevated blood pressure reading in office without diagnosis of hypertension Carpal tunnel syndrome on both sides Lumbago with sciatica, right side Encounter to establish care Environmental and seasonal allergies Recent URI Surgical History Surgical History History of foot surgery Left Foot April 2021 Hx of hysterectomy 2019 H/O excision of mass 11/18/2019: 4cm back mass excision History of prior ablation treatment History of D&C History of cholecystectomy delivery delivered Family History Family History Father Diabetes mellitus Sibling Asthma Mother Diabetes mellitus Other Cancer Hypertension Social History Social History Social History: . 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 Gender identity (if verbalized by the patient): Female Sexual Orientation (if Verbalized by the Patient): Straight or Heterosexual Spiritual care concerns: No Meds Home Medications and Allergies Home Medications ?Medication ?Instructions ?Recorded ?Confirmed ?Type inhalational spacing device (Space #1 ea 10/23/21 08/29/23 Rx Chamber) albuterol sulfate 90 mcg/actuation 1 - 2 inh inhalation Q4-6H PRN 04/29/22 02/21/24 Rx aerosol inhaler shortness of breath or wheezing #8.5 grams beclomethasone dipropionate 80 1 inh inhalation Q12H #10.6 grams 05/15/23 05/03/24 Rx mcg/actuation HFA breath activated aerosol (Qvar RediHaler) meloxicam 15 mg tablet 15 mg PO DAILY PRN pain #30 tabs 06/05/23 05/03/24 Rx tizanidine 4 mg tablet 2 - 4 mg (0.5 - 1 x 4 mg) PO TID 06/05/23 02/21/24 Rx PRN muscle spasticity #90 tabs albuterol sulfate 90 mcg/actuation 2 inh inhalation Q4H PRN shortness 07/11/23 02/21/24 Rx aerosol inhaler of breath or wheezing #6.7 grams montelukast 10 mg tablet 10 mg PO QHS #14 tabs 07/11/23 05/03/24 Rx (Singulair) amlodipine 10 mg tablet 10 mg PO DAILY #30 tabs 10/19/23 05/03/24 Rx hydrochlorothiazide 12.5 mg tablet 12.5 mg PO DAILY #30 tabs 11/28/23 05/03/24 Rx gabapentin 300 mg capsule See Rx Instructions PO BID #90 caps 01/08/24 05/03/24 Rx lisinopril 20 mg tablet 20 mg PO DAILY #90 tabs 04/02/24 05/03/24 Rx progesterone micronized 100 mg 100 mg PO QPM 04/22/24 05/03/24 History capsule Allergies Allergy/AdvReac Type Severity Reaction Status Date / Time No Known Allergies Allergy Verified 05/03/24 13:10 Vital Signs Vital Signs - 24 hr 05/03/24 13:13 Temperature 97.5 F L Pulse Rate 79 Respiratory Rate 16 Blood Pressure 144/80 H Pulse Oximetry 99 Oxygen Delivery Room Air Exam Const: General: comfortable and no acute distress HENMT: Face/Nose/Sinus: Normal nares present Eyes: General: appearance normal, both eyes and all related structures Neck: Neck: no JVD Resp: Auscultation: clear to auscultation bilaterally Cardio: Rate: regular rate Rhythm: regular rhythm GI: Inspection: non-distended GI Palp: Yes Soft to palpation Skin: General skin exam: normal color Neuro: General: gait normal Speech: normal speech Extrem: General: normal to inspection Psych: Mental Status: mental status grossly normal Assessment and Plan Assessment and plan (1) Colon cancer screening: Code(s): Z12.11 - Encounter for screening for malignant neoplasm of colon Status: Acute Assessment and Plan: colonoscopy
[2024-05-03 14:31] VITALS: BP 102/65; PULSE 90; RESP 20; O2SAT 98
[2024-05-03 14:41] VITALS: BP 110/65; PULSE 72; RESP 15; O2SAT 98
[2024-05-03 14:51] VITALS: BP 124/78; PULSE 96; RESP 15; O2SAT 98
== END 2024-05-03 15:00 | disposition home or self-care (01) ==
PROVIDERS: PCP Nurse Practitioner Family; Visit Provider Internal Medicine Gastroenterology
PROC: 0DJD8ZZ Inspection of Lower Intestinal Tract, Via Natural or Artificial Opening Endoscopic (ICD-10-PCS; CPT 45378; principal; 2024-05-03 14:30)
DX: Z12.11 Encounter for screening for malignant neoplasm of colon (principal); D12.2 Benign neoplasm of ascending colon; K64.8 Other hemorrhoids; E78.2 Mixed hyperlipidemia; I10 Essential (primary) hypertension
CPT/HCPCS: 45385; 88305; J2003; J2704; J7120

== ENCOUNTER 2024-06-21 09:56 | Emergency (ER) | payer OTHER, SELFPAY ==
[2024-06-21 10:02] VITALS: BP 149/76; PULSE 81; RESP 18; TEMP 37.3; O2SAT 99
--- OUTSIDE RECORDS SUMMARY | 2024-06-21 10:04 | XMS_ITS ---
Author Organization 1 OF Emir wise [facility] Address [address] [place] [address] Care Team Providers Care Cocoa Press Operator Name Role Phone UNKNOWN, UNKNOWN Primary Care Provider Unavailab Ness Chaudhary Unavailable [phone] Allergies Allergen (clinical drug ingredient) Drug/Non Drug Allergy documented on EMR Reaction Allergy Type Onset Date Status cyclobenzaprine Cyclobenzaprine Unknown Drug Allergy Active REASON FOR VISIT b/l foot pain Medications Medication SIG (Take, Route, Frequency, Duration) Notes Start Date End Date Status ZyrTEC Allergy Activ e Advil Allergy Sinus Active Tylenol Active Gabapentin 100 MG 1 capsule Orally QHS Active Multivitamin Active hydroCHLOROthiazide 25 MG 1 tablet in th e morning Orally Once a day Active amLODIPine Benzoate 1 MG/ML 5 mL Orally Once a day Active Lisinopril Active Singulair Active Vitamin D Active Vital Signs Height 66 in 11/16/2023 Weight 218 lbs 11/16/2023 BMI 35.18 kg/m2 11/16/2023 Encounters Encounter Location Date Provider Diagnosis 1 OF Emir [facility] [address] [place] [address] 11/16/2023 Ness Gutierrez Nerve pain M79.2 ; Left Achilles tendinitis M76.62 ; Right foot pain M79.671 and Left foot pain M79.672 Assessments Encounter Date Diagnosis (ICD Code) Assessment Notes Treatment Notes Treatment Clinical Notes Section Notes 11/16/2023 Nerve pain (ICD-10 - M79.2) I discussed that the pain on her right foot is likely due to her sciatica. She can continue her treatments for sciatica. 11/16/2023 Left Achilles tendinitis (ICD-10 - M76.62) Evaluation today included a review of medical history, review of systems, discussion of exam findings, and review of diagnoses and treatment options. X-rays were reviewed and discussed. I discussed treatment options for Achilles tendinitis. She was advised to rest, ice, elevate and take vgvj-ezw-faojeb r medication as needed. I discussed the potential use of a topical anti-inflammato ry medication. She was given stretching exercises to perform. I discussed the importance of wearing good supportive shoes. She currently wears inserts. I did discuss the potential use of heel lifts as well to take tension off of the Achilles tendon. She will purchase this online. She would like to call as needed for her symptoms. 11/16/2023 Right foot pain (ICD-10 - M79.671) 11/16/2023 Left foot pain (ICD-10 - M79.672) Plan Of Treatment Treatment Notes Assessment Notes Nerve pain I discussed that the pain on her right foot is likely due to her sciatica. She can continue her treatments for sciatica. Left Achilles tendinitis Evaluation toda y included a review of medical history, review of systems, discussion of exam findings, and review of diagnoses and treatment options. X-rays were reviewed and discussed. I discussed treatment options for Achilles tendinitis. She was advised to rest, ice, elevate and take ikwn-vxl-cykwxym medication as needed. I discussed the potential use of a topical anti-inflammatory medication. She was given stretching exercises to perform. I discussed the importance of wearing good supportive shoes. She currently wears inserts. I did discuss the potential use of heel lifts as well to take tension off of the Achilles tendon. She will purchase this online. She would like to call as needed for her symptoms. Next Appt Details Follow Up: prn, Reason: Progress Notes * Lea RACHELDOB:1975 (49 yo F)Acc No.[id number]:11/16/2023 Progress Notes Patient: Sean Lea GRAFF Provider: Horacio Gutierrez DPM :1975 A ge:48 Y S ex:Female Date:11/16/2023 Address:[facility] [address] , [facility] Pcp:UNKNOWN UNKNOWN Subjective: * Chief Complaints: * B /l foot pain * HPI: Edelmira Huerta assisting with visit:: HPI/Rooming: Edelmira charles. Jona talavera reason for visit:: New Problem: [age] year old female, last seen in 2021, PTO with chief complaint of left heel pain since the end of September. She reports she wore some really flat sandals and that was the onset of her problem. The pain comes and goes, and she reports to having numbness and tingling on the lateral right foot. She has been suffering from sciatica on the right lower extremity for years. She reports to [facility] to help with the pain.. * ROS: * MULTI-SYSTEM REVIEW:: Nausea, fever or chillls d enies. b urning, tingling,numbness in feet admits. A ny change in medications since last visit? d enies. A ny changes in medical history/hospitalizations? d enies. * Medical History: * Medications: T akingVitamin D Singulair Lisinopril amLODIPine Benzoate 1 MG/ML Suspension 5 mL Orally Once a day hydroCHLOROthiazide 25 MG Tablet 1 tablet in the morning Orally Once a day Gabapentin 100 MG Capsule 1 capsule Orally QHS Tylenol Advil Allergy Sinus ZyrTEC Allergy Multivitamin Medication List reviewed and reconciled with the patientTaking Vitamin D Taking Singulair Taking Lisinopril Taking amLODIPine Benzoate 1 MG/ML Suspension 5 mL Orally Once a day Taking hydroCHLOROthiazide 25 MG Tablet 1 tablet in the morning Orally Once a day Taking Gabapentin 100 MG Capsule 1 capsule Orally QHS Taking Tylenol Taking Advil Allergy Sinus Taking ZyrTEC Allergy Taking Multivitamin Medication List reviewed and reconciled with the patient * Allergies: C yclobenzaprineno[Allergies Verified] Objective: * Vitals: W t:218lbs, Wt-k.88 kg, Ht: 66 in, BMI:35.18Index. * Examination: G eneral Examination: Constitutional / Appearance: N o acute distress , Well nourished, Appropriate personal hygiene. Mental status: C ooperative, Oriented to person, place and time, Mood and affect: normal, Judgement and intellect: normal with appropriate response to questions. Shoes today: T bella Shoes. L ower Extremity VASCULAR: : Pulses: D P and PT pulses, palpable, bilateral. Temperature gradient: w arm from proximal to distal, bilateral. Pedal hair: p resent, bilateral. Capillary refill at distal toes less than 3 seconds, bilateral. L ower Extremity DERM: : Skin: w ell hydrated , no suspicious lesions, no ecchymosis , bilateral. L ower Extremity MSK: : Gait Gait unremarkable with normal posture, propulsion and balance. Muscle strength: 5/5 , all 4 quadrants tested, bilateral. Left lower extremity inspection and palpation: N o palpable masses or nodules noted. Pain with palpation along the course of the Achilles tendon. Achilles tendon is intact. Negative lateral squeeze test of the calcaneus. L ess than 10 degrees of ankle joint dorsiflexion noted with the knee extended, which increases with the knee flexed.. Right lower extremity inspection and palpation: N o palpable masses or nodules noted. Unable to re-create any pain with palpation along the lateral aspect of the foot. No pain with palpation along the fourth and fifth metatarsophalangeal joints or toes.. L ower Extremity NEURO: : General sensation appears intact, bilateral. Muscle tone within normal limits, bilateral. Tarsal tunnel evaluation: U nremarkable with no pain or paresthesias noted b/l.. D iagnostic Studies: : X-rays of left lower extremity: 3 views of left foot: No acute fractures or dislocations noted. No acute abnormalities noted to the calcaneus. Plantar and posterior calcaneal enthesopathy noted.. X-rays of right lower extremity: 3 views of right foot:?No acute fractures or dislocations noted. No acute abnormalities noted to the lateral foot. Plantar and posterior calcaneal enthesopathy noted.. Assessment: * Assessment: 1. L eft Achilles tendinitis - M76.62 2 . N erve pain - M79.2 (Primary)? 3. R ight foot pain - M79.671 4 . L eft foot pain - M79.672? Plan: * Treatment: 2. L eft Achilles tendinitis Notes: Evaluation today included a review of medical history, review of systems, discussion of exam findings, and review of diagnoses and treatment options. X-rays were reviewed and discussed. I discussed treatment options for Achilles tendinitis. She was advised to rest, ice, elevate and take ojhi-fbu-fiahjam medication as needed. I discussed the potential use of a topical anti-inflammatory medication. She was given stretching exercises to perform. I discussed the importance of wearing good supportive shoes. She currently wears inserts. I did discuss the potential use of heel lifts as well to take tension off of the Achilles tendon. She will purchase this online. She would like to call as needed for her symptoms. * Procedure Codes: 7 3630 X-RAY FOOT (3 views), Modifiers: [place] 76002 X-RAY FOOT (3 views), Modifiers: RT * Follow Up: p rn * Images: * ITORY ACCOUNT REPRESENTATIVE Sign off status: Completed true * Provider: Horacio Gutierrez DPM Date: 0 11/16/2023 Generated for Angle mares/Isaías/Stephanie on: 0 06/21/2024 10:04 AM CDT History and Physical Notes * HPI (History of Present Illness) Category Sub-Category Detail Notes Category Not es Primary reason for visit: New Problem: 48 yea r old female, last seen in 2021, PTO with chief complaint of left heel pain since the end of September. She reports she wore some really flat sandals and that was the onset of her problem. The pain comes and goes, and she reports to having numbness and tingling on the lateral right foot. She has been suffering from sciatica on the right lower extremity for years. She reports to [facility] to help with the pain. RA assisting with visit: HPI/Rooming: Sondra Examination Category Sub-Category Detail Notes Category Not es General Examination Mental status: Cooperative, Oriented to person, place and time, Mood and affect: normal, Judgement and intellect: normal with appropriate response to questions Shoes today: Tennis Shoes Constitutional / Appearance: No acute di stress , Well nourished, Appropriate personal hygiene Lower Extremity VASCULAR: Pulses: DP and PT pulse s, palpable, bilateral Temperature gradient: warm from proximal to distal, bilateral Pedal hair: present, bilateral Capillary refill at distal toes less ashley n 3 seconds, bilateral Lower Extremity NEURO: General sensation appears intac t, bilateral Muscle tone within normal limits , bilateral Tarsal tunnel evaluation: Unremarkable w ith no pain or paresthesias noted b/l. Lower Extremity MSK: Muscle strength: 5/5 , all 4 quad rants tested, bilateral Left lower extremity inspect ion and palpation: No palpable masses or nodules noted. Minda n with palpation along the course of the Achilles tendon. Achilles tendon is intact. Negative lateral squeeze test of the calcaneus. Less than 10 degrees of ankle joint dorsiflexion noted with the knee extended, which increases with the knee flexed. Right lower extremity inspec tion and palpation: No palpable masses or nodules noted. Viki ble to re-create any pain with palpation along the lateral aspect of the foot. No pain with palpation along the fourth and fifth metatarsophalangeal joints or toes. Gait Gait unremarkable wi th normal posture, propulsion and balance Diagnostic Studies: X-rays of left lower extremity: 3 views of left foot: No acute fractures or dislocations noted. No acute abnormalities noted to the calcaneus. Plantar and posterior calcaneal enthesopathy noted. X-rays of right lower extremity: 3 views of right foot: No acute fractures or dislocations noted. No acute abnormalities noted to the lateral foot. Plantar and posterior calcaneal enthesopathy noted. Lower Extremity DERM: Skin: well hydra jairo , no suspicious lesions, no ecchymosis, bilateral
--- OUTSIDE RECORDS SUMMARY | 2024-06-21 10:04 | XMS_ITS | Clinical Summary ---
Author Organization [facility] Address [facility] [place] [address] Care Team Providers Care Straw Hat Brim Cutter Operator Name Role Phone Gema SpencerNEISHA Primary Care Provider [phone] Allergies No known active allergies Medications lisinopril [...] Active Problems No known active problems Immunizations Immunization Administration Dates Next Due PFIZER COVID-19 (ORIGINAL [...] on file Legal Sex Female 3:13 PM BOAT BUILDER AND REPAIRER Gender Identity Female 03/31/2021 8:18 AM BOAT BUILDER AND REPAIRER Sexual Orientation Straight 03/31/2021 8: 18 AM BOAT BUILDER AND REPAIRER Last Filed Vital Signs Vital Sign Reading Time Taken Comments Blood Pressure 158/82 04/06/2021 11:35 AM BOAT BUILDER AND REPAIRER Pulse 78 04/06/2021 11:35 AM BOAT BUILDER AND REPAIRER Temperature 36.4 C (97.6 F) 04/06/2021 11:35 AM BOAT BUILDER AND REPAIRER Respiratory Rate 16 04/06/2021 11:3 5 AM BOAT BUILDER AND REPAIRER Oxygen Saturation 96% 04/06/2021 11: 35 AM BOAT BUILDER AND REPAIRER Inhaled Oxygen Concentration - - Weight 99.3 kg (218 lb 14.7 oz) 04/06/2021 6:00 AM BOAT BUILDER AND REPAIRER Height 167.6 cm (5' 6 ) 04/06/2021 6:00 AM BOAT BUILDER AND REPAIRER Body Mass Index 35.33 04/06/2021 6:00 AM BOAT BUILDER AND REPAIRER Plan of Treatment Health Maintenance Due Date Last Done Comments Colorectal Cancer Screening Colonoscopy (10 Years) 1975 Annual Physical 1978 Hepatitis C 1993 DTaP, Tdap and Td Vaccines ( 1 - Tdap) 1994 Hepatitis B Vaccines (1 of 3 - 19+ 3-dose series) 1994 Mammogram Screening 2015 COVID-19 Vaccine (3 - 2023-2 5 season) 2023 04/06/2020, 03/14/2020 Meningococcal B Vaccine Aged Out No l onger eligible based on patient's age to complete this topic Meningococcal Vaccine Aged Out No issac miesha eligible based on patient's age to complete this topic Pneumococcal Vaccine: Pediatrics (0 to 5 Years) and At-Risk Patients (6 to 49 Years) Aged Out No longer eligible b ased on patient's age to complete this topic RSV Immunizations Under 20 Months Aged Out No longer eligible b ased on patient's age to complete this topic Insurance GEHA Care Teams Straw Hat Brim Cutter Operator Relationship Specialty Start Date End Date Gema Spencer APNP [address] [address] PCP - General Nurse Practitioner Family 04/06/21
--- OUTSIDE RECORDS SUMMARY | 2024-06-21 10:04 | XMS_ITS | Patient Health Record ---
Author Organization [facility] Address [address] [place], [place] [id number] Care Team Providers Care Twister In Name Role Phone CAROL Hernandez Unavailable [phone] Gema Spencer Unavailable Unavailable Allergies No Known Allergies Reason For Referral No Information Medications Medication SIG (Take, Route, Frequency, Duration) Notes Start Date End Date Status Lisinopril 20 MG Oral for 90 Days Active Albuterol Sulfate HFA 108 (90 Base) MCG/ACT INHALE 1-2 PUFFS BY MOUTH EVERY 4-6 HOURS NEEDED FOR SHORTNESS OF BREATH OR WHEEZING Inhalation for 16 Days Active Montelukast Sodium 10 MG Oral for 90 Days Active Metoclopramide HCl 10 MG Oral for 3 Days Active Ondansetron HCl 4 MG Oral for 10 Days Active Meloxicam 15 MG Oral for 30 Days Active Plan Of Treatment No Information Insurance Providers Payer Name Payer Address Payer Phone Subscriber Number Group Number Insured Name Patient Relationship to Insured Coverage Start Date Coverage End Date [facility] [id number] [facility] [place] [id number] CHAN Spouse - patient is the spouse of the insured
--- OUTSIDE RECORDS SUMMARY | 2024-06-21 10:05 | XMS_ITS ---
Author Organization [facility] Address [address] [facility] [address] [place], [place] [id number] Care Team Providers Care Vision Mixer Name Role Phone CAROL Hernandez Unavailable [phone] Gema Spencer Unavailable Unavailable Encounters Encounter Location Date Provider Diagnosis [facility] [address] [facility] [address] [place], [place] [id number] 12/21/2022 CAROL Hernandez Plan Of Treatment No Information Progress Notes * RE BROOKSDOB:1975 (47 yo F)Acc No.[id number]:12/21/2022 Patient: Sean RE GRAFF :1975 A ge:47 Y S ex:Female Address:[address] [place] [address], [place], [address] * true * Date: Generated for Rubeni ng/Falouanng/eTransmitting on: 0 06/21/2024 10:05 AM CDT
--- OUTSIDE RECORDS SUMMARY | 2024-06-21 10:05 | XMS_ITS ---
Author Organization [facility] Address [address] [facility] [address] [place], [place] [phone] Care Team Providers Care Gauge Checker Name Role Phone CAROL Hernandez Unavailable [phone] Gema Spencer Unavailable Unavailable REASON FOR VISIT NCV/EMG RESULTS Medications Medication SIG (Take, Route, Frequency, Duration) [...] 15 MG Oral for 30 Days Active Vital Signs Height 66.00 in 12/23/2022 Weight 222 lbs 12/23/2022 BMI 35.83 kg/m2 12/23/2022 Height-cm 167.64 cm 12/23/2022 Weight-kg 100.7 kg 12/23/2022 Encounters Encounter Location Date Provider Diagnosis [facility] [address] [facility] [address] [place], [place] [phone] 12/23/2022 CAROL Hernandez Peroneal tendonitis of right lower extremity M76.71 ; Sciatica, right side M54.31 ; Sciatica, left side M54.32 and Pain in right foot M79.671 Assessments Encounter Date Diagnosis (ICD Code) Assessment Notes Treatment Notes Treatment Clinical Notes Section Notes 12/23/2022 Peroneal tendonitis of right lower extremity (ICD-10 - M76.71) Peroneal Tendonitis: I discussed anti-inflammatory treatment options and various means of immobilization with the patient. I educated the patient on icing and stretching, supportive shoegear, and the use of orthotic devices and bracing. Patient to continue wearing superfeet inserts. Patient to use the trilok brace as needed. Patient to continue use of mobic prn. 12/23/2022 Sciatica, right side (ICD-10 - M54.31) Reviewed results of patient NCV/EMG which were normal. Patient still having sciatic nerve pain despite doing physical therapy. Patient to discuss with her PCP or pain management about injections or advanced imagin. 12/23/2022 Sciatica, left side (ICD-10 - M54.32) 12/23/2022 Pain in right foot (ICD-10 - M79.671) Plan Of Treatment Treatment Notes Assessment Notes Peroneal tendonitis of right lower extremity Peroneal Tendonitis: I discussed anti-inflammatory treatment options and various means of immobilization with the patient. I educated the patient on icing and stretching, supportive shoegear, and the use of orthotic devices and bracing. Patient to continue wearing superfeet inserts. Patient to use the trilok brace as needed. Patient to continue use of mobic prn. Sciatica, right side Reviewed results of patient NCV/EMG which were normal. Patient still having sciatic nerve pain despite doing physical therapy. Patient to discuss with her PCP or pain management about injections or advanced imagin. Next Appt Details Follow Up: prn, Reason: Progress Notes * RE BROOKSDOB:1975 (48 yo F)Acc No.[id number]:12/23/2022 Patient: Sean RE GRAFF Provider: Mahendra Quiles DPM :1975 A ge:47 Y S ex:Female Date:12/23/2022 Address:[address] [place] [address] Subjective: * Chief Complaints: * 1 . NCV/EMG RESULTS. * HPI: H [facility] _ ncv/emg result. , Patient states their problem is about the same still having the numb and taingling feeling. BS . * ROS: G eneral / Constitutional: Patient denies c hange in appetite, chills, fatigue, fever.? C ardiovascular: Patient denies h air loss on leg, leg or foot ulcers, extremities cool. M usculoskeletal: Patient denies b roken foot bone, ankle sprain, gout. ? S kin: Patient denies a thletes foot, fungal nails, rash, ulcerations. N eurologic: Patient denies B urning/Tingling, Numbness, gait abnormality. * Medical History: * Medications: T aking Meloxicam 15 MG Tablet Oral , Taking Ondansetron HCl 4 MG Tablet Oral , Taking Metoclopramide HCl 10 MG Tablet Oral , Taking Montelukast Sodium 10 MG Tablet Oral , Taking Albuterol Sulfate HFA 108 (90 Base) MCG/ACT Aerosol Solution INHALE 1-2 PUFFS BY MOUTH EVERY 4-6 HOURS NEEDED FOR SHORTNESS OF BREATH OR WHEEZING Inhalation , Taking Lisinopril 20 MG Tablet Oral Objective: * Vitals: W t:222lbs, Wt-k.7 kg, Ht: 66.00 in, Ht-cm: 167.64 cm, BMI:35.83Index, Body Surface Area: 2.16. * Examination: C onstitutional: Constitutional T he patient is awake, alert, well developed, well groomed and well nourished.. M usculoskeletal: Muscle Strength M uscle strength is 5/5 in regards to dorsiflexion, plantarflexion, inversion, and eversion in bilateral lower extremities.. Pain on palpation T here is pain on palpation of the right peroneal tendons.. Foot Structure T he foot structure is noted to be, normal, bilaterally. Gait T here is normal gait noted. N eurologic: Winthrop-Weinstin 5.07 monofilament I ntact protective sensation via 5.07 g swmf left and diminished protective sensation on the lateral aspect of the right foot.. Gross sensation G ross sensation is intact to light touch..? D ermatologic: Skin findings: S kin is warm, dry, supple with no breaks in the skin.. Nail pathology: N ails 1-5 bilateral are normal in appearance and thickness. No discoloration.. Hyperkeratotic Skin Lesion T here is no evidence of hyperkeratosis. V ascular: Dorsalis pedis pulse: 2 /4, bilateral, bilateral. Posterior tibial pulse: 2 /4, bilaterally. Capillary refill: l ess than 3 seconds, bilaterally, bilaterally. Edema: N o edema noted b ilateral. ? Assessment: * Assessment: 1. P eroneal tendonitis of right lower extremity - M76.71 (Primary) 2 . S ciatica, right side - M54.31 3 . S ciatica, left side - M54.32 4 . P ain in right foot - M79.671? Plan: * Treatment: 2. S ciatica, right side Notes: Reviewed results of patient NCV/EMG which were normal. Patient still having sciatic nerve pain despite doing physical therapy. Patient to discuss with her PCP or pain management about injections or advanced imagin. * Follow Up: p rn * Billing Information: * Visit Code: 24520 Office Visit, Est Pt., Level 3. * Procedure Codes: * Sign off status: Completed true * Provider: Mahendra Quiles DPM Date: 1 Generated for Angle mares/Isaías/Stephanie on: 0 06/21/2024 10:05 AM CDT History and Physical Notes * HPI (History of Present Illness) Category Sub-Category Detail Notes Category Not es HPI Follow Up Visit Patient presents for follow up visit for _ ncv/emg result. , Patient states their problem is about the same still having the numb and taingling feeling. BS Examination Category Sub-Category Detail Notes Category Not es Dermatologic Skin findings: Skin is warm, dr y, supple with no breaks in the skin. Nail pathology: Nails 1-5 bilateral are normal in appearance and thickness. No discoloration. Hyperkeratotic Skin Lesion There is no e vidence of hyperkeratosis Neurologic Winthrop-Weinstin 5.07 monofilamen t Intact protective sensation via 5.07 g swmf left and diminished protective sensation on the lateral aspect of the right foot. Gross sensation Gross sensation is i ntact to light touch. Vascular Dorsalis pedis pulse: 2/4, bilateral, eduardo ateral Edema: No edema noted bilat eral Capillary refill: less than 3 seconds, bilaterally, bilaterally Posterior tibial pulse: 2/4, bilaterally Musculoskeletal Muscle Strength Muscle strength is 5/5 in regards to dorsiflexion, plantarflexion, inversion, and eversion in bilateral lower extremities. Pain on palpation There is pain on pal pation of the right peroneal tendons. Foot Structure The foot structure i s noted to be, normal, bilaterally Gait There is normal gait noted Constitutional Constitutional The patient is a wake, alert, well developed, well groomed and well nourished.
--- OUTSIDE RECORDS SUMMARY | 2024-06-21 10:05 | XMS_ITS | Referral Summary ---
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 BLADE BALANCER: [facility] HISTORICAL RESULTS Comment: MMW, CT(ASCP) CT screening location: [place] [address] [place] [address] COMMENT [facility] HISTORICAL RESULTS Comment: EXPLANATORY [...] PM CDT 06/13/2017 10:25 PM CDT Narrative [facility] HISTORICAL RESULTS - 06/13/2017 9:55 PM CDT 0 PERFORMING LAB: , [facility] [place] [address] [facility] [address] Saul Weber MD Alexandr Castro MD LAB PATHOLOGY ORDERAB LES Final Result [facility] HISTORICAL RESULTS from Last 3 Months or Most Recently Relevant to Health Maintenance Insurance [employer] PPO [facility] HMO/PPO Address: [facility] [address] [place] [address] Care Teams Tab Cutting Machine Operator Relationship Specialty Start Date End Date No, Physician PCP - General 10/09/23
--- OUTSIDE RECORDS SUMMARY | 2024-06-21 10:05 | XMS_ITS | Clinical Summary ---
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 PAP: [facility] HISTORICAL RESULTS Comment:INFORMATION NOT PROV IDED PREV. BX: [facility] HISTORICAL RESULTS Comment:INFORMATION NOT PROV IDED SOURCE: [facility] HISTORICAL RESULTS Comment:Cervix STATEMENT OF ADEQUACY: [facility] HISTORICAL RESULTS Comment: Satisfactory for evaluation. Endocervical/transformation zone component present. Age and/or menstrual status not provided INTERPRETATION/RESU LT: [facility] HISTORICAL RESULTS Comment:Negative for intraep ithelial lesion or malignancy. COMMENT: [facility] HISTORICAL RESULTS Comment: This Pap test has been evaluated with computer assisted technology. ASSOCIATE TEACHER: [facility] EC HISTORICAL RESULTS Comment: MMW, CT(ASCP) CT screening location: [place] [address] [place] [address] COMMENT [facility] HISTORICAL RESULTS Comment: EXPLANATORY NOTE: The Pap [...] PM CDT 06/13/2017 10:25 PM CDT Narrative [facility] HISTORICAL RESULTS - 06/13/2017 9:55 PM CDT 0 [facility]FORMING LAB[facility] [address] [address] [address] Saul Weber MD us Alexandr Castro MD LAB PATHOLOGY ORDERAB LES Final Result [facility] HISTORICAL RESULTS from Last 3 Months or Most Recently Relevant to Health Maintenance Insurance [employer] PPO Care Teams Booth Operator Relationship Specialty Start Date End Date No, Physician PCP - General 10/09/23
--- OUTSIDE RECORDS SUMMARY | 2024-06-21 10:05 | XMS_ITS ---
Author Organization [facility] Address [address] [place], [place] [address] Care Team Providers Care Fire Apparatus Engineer Name Role Phone CAROL Hernandez Unavailable [phone] Gema Spencer Unavailable Unavailable Encounters Encounter Location Date Provider Diagnosis [facility] [address] [place], [place] [id number] 12/22/2022 CAROL Hernandez Plan Of Treatment No Information Progress Notes * RE BROOKSDOB:1975 (47 yo F)Acc No.[id number]:12/22/2022 Patient: Sean RE GRAFF :1975 A ge:47 Y S ex:Female Address:[address] [place] [address], [place], [address] * true * Date: Generated for Angle mares/Isaías/eTransmitting on: 0 06/21/2024 10:04 AM CDT
--- OUTSIDE RECORDS SUMMARY | 2024-06-21 10:05 | XMS_ITS | Patient Health Record ---
Author Organization 1 OF Emir [facility] Address [address] [address] [place] [address] Care Team Providers Care Smokehouse Operator Name Role Phone UNKNOWN, UNKNOWN Primary Care Provider UnavailNess Romo Unavailable [phone] Allergies Allergen (clinical drug ingredient) Drug/Non Drug Allergy documented on EMR Reaction Allergy Type Onset Date Status cyclobenzaprine Cyclobenzaprine Unknown Drug Allergy Active Reason For Referral No Information Medications Medication SIG (Take, Route, Frequency, Duration) Notes Start Date End Date Status hydroCHLOROthiazide 25 MG 1 tablet in th e morning Orally Once a day Active amLODIPine Benzoate 1 MG/ML 5 mL Orally Once a day Active Lisinopril Active Singulair Active ZyrTEC Allergy Activ e Advil Allergy Sinus Active Tylenol Active Gabapentin 100 MG 1 capsule Orally QHS Active Vitamin D Active Multivitamin Active Social History Tobacco Use: Social History Observation Description Date Details (start date - stop date) Never Smoker NA - NA Tobacco Use/Smoking Question Answer Notes Are you a nonsmoker Problems Problem Type SNOMED Code ICD Code Onset Dates Problem Status W/U Status Risk Notes Problem 505281357 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 Problem 484367580 Acquired supination of right foot (M21.6X1) Active confirmed Problem 926197790 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 confirmed Problem 476329375 Inversion deformity of right foot (M21.6X1) Active confirmed Problem 04868777 Pes cavus of left foot (Q66.72) Active confirmed Problem 40943237 Pes cavus of right foot (Q66.71) Active confirmed Vital Signs Height 66 in 11/16/2023 Weight 218 lbs 11/16/2023 BMI 35.18 kg/m2 11/16/2023 Encounters Encounter Location Date Provider Diagnosis [facility] [address] [address] 11/16/2023 Ness Gutierrez Nerve pain M79.2 ; Left Achilles tendinitis M76.62 ; Right foot pain M79.671 and Left foot pain M79.672 Assessments Encounter Date Diagnosis (ICD Code) Assessment Notes Treatment Notes Treatment Clinical Notes Section Notes 11/16/2023 Left Achilles tendinitis (ICD-10 - M76.62) Evaluation today included a review of medical history, review of systems, discussion of exam findings, and review of diagnoses and treatment options. X-rays were reviewed and discussed. I discussed treatment options for Achilles tendinitis. She was advised to rest, ice, elevate and take lwpo-eqf-wujlab r medication as needed. I discussed the [...] call as needed for her symptoms. 11/16/2023 Nerve pain (ICD-10 - M79.2) I discussed that the pain on her right foot is likely due to her sciatica. She can continue her treatments for sciatica. 11/16/2023 Right foot pain (ICD-10 - M79.671) 11/16/2023 Left foot pain (ICD-10 - M79.672) Plan Of Treatment No Information Insurance Providers Payer Name Payer Address Payer Phone Subscriber Number Group Number Insured Name Patient Relationship to Insured Coverage Start Date Coverage End Date [facility] [address] [address] [place] [address] [id number] RadicicLea Self - patient is the insured Medical (General) History Medical History History ICD Code Sciatica, hypertension, pre diabetic Surgical History Surgery Date(Month/Year)
--- NOTE | 2024-06-21 10:10 | ED.URI ---
HPI - URI/Sore Throat General Chief Complaint: Upper Respiratory Infection Stated Complaint: Cough Time Seen by Provider: 06/21/24 10:18 Source: patient, RN notes reviewed and old records reviewed Mode of arrival: ambulatory Limitations: no limitations History of Present Illness HPI Narrative: 39-year-old female presents to the [facility] with complaints postnasal drainage and a cough that has been dry for 2 weeks. States that Monday 4 days ago started with a hoarse voice. Reports at home COVID test was negative Patient reports that she gets the symptoms frequently and her primary normally gives her prednisone to help. Reports taking DayQuil, NyQuil, Zyrtec and cough drops Related Data Home Medications ?Medication ?Instructions ?Recorded ?Confirmed ?Last Taken ?Type progesterone micronized 100 mg 100 mg PO QPM 04/22/24 05/03/24 05/02/24 History capsule Allergies Allergy/AdvReac Type Severity Reaction Status Date / Time cyclobenzaprine Allergy Mild Hives Verified 06/21/24 10:17 Review of Systems Review of Systems: All systems reviewed & are unremarkable except as noted in HPI and below Constitutional: Constitutional: Reports no additional constitutional complaints ENT: Reports as per HPI Cardiovascular: Cardiovascular: Reports no additional cardiovascular complaints, Denies chest pain and Denies dyspnea Respiratory: Respiratory: Reports as per HPI, Denies chest congestion, Reports cough and Denies dyspnea Musculoskeletal: Musculoskeletal: Reports no additional musculoskeletal complaints Integumentary/Breasts: Skin/Breast: Reports system reviewed and no additional complaints, except as docu PMFSH Past Medical History Medical History Colon cancer screening Seasonal allergies Abnormal EKG Heart palpitations Numbness and tingling in both hands Weakness of both hands Mass of subcutaneous tissue of back Low back pain radiating to both legs Right knee pain Nausea LUQ pain BMI 37.0-37.9, adult Prediabetes Wheezing BMI 35.0-35.9,adult Microscopic hematuria Elevated fasting glucose Left ankle pain Mixed hyperlipidemia Hypertension Abdominal discomfort in left upper quadrant Elevated WBC count Elevated blood pressure reading in office without diagnosis of hypertension Carpal tunnel syndrome on both sides Lumbago with sciatica, right side Encounter to establish care Environmental and seasonal allergies Recent URI Surgical History Surgical History History of foot surgery Left Foot April 2021 Hx of hysterectomy 2019 H/O excision of mass 11/18/2019: 4cm back mass excision History of prior ablation treatment History of D&C History of cholecystectomy delivery delivered Family History Family History Father Diabetes mellitus Sibling Asthma Mother Diabetes mellitus Other Cancer Hypertension Social History Social History Social History: . 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 There is no relevant family history pertinent to the patient complaint. Exam Const: General: cooperative, healthy appearing, comfortable, no acute distress, well developed, alert and well nourished Nutritional Appearance: well nourished Orientation/consciousness: patient oriented x3 Limitations: no limitations HENMT: Head: normal to inspection Ears: hearing grossly normal bilaterally, external ears normal, TM's normal bilaterally, EAC's normal, mastoids normal and no periauricular adenopathy Mouth: Yes Normal oral and palatal mucosa present, Yes lip normal, Yes tongue normal and Yes moist mucous membranes Throat: posterior oropharynx normal, uvula midline, postnasal drainage and no uvular edema Eyes: General: appearance normal, both eyes and all related structures Alignment and Position: alignment normal Neck: Neck: normal visual inspection, full ROM, no lymphadenopathy and no meningeal signs Chest: Chest palpation & inspection: normal inspection of the chest Resp: Effort & Inspection: normal respiratory effort and able to speak in complete sentences Auscultation: clear to auscultation bilaterally, no crackles, no rales, no rhonchi and no wheezes Cardio: Rate: regular rate Skin: General skin exam: normal color and no rashes or lesions noted Neuro: General: patient oriented x3, gait normal, moves all extremities and no meningeal signs Cognition (Neuro): normal cognition Speech: normal speech Gait exam (Neuro): Normal gait present Extrem: General: normal to inspection, full ROM, capillary refill normal and normal gait Psych: Appearance: grossly normal and well kempt Mental Status: mental status grossly normal Speech and movement: Normal speech and movement present and Clear speech present Affect: normal affect Attitude: cooperative Course Course Level of Care: Express Care Visit Vital Signs Vital signs: Vital Signs Temperature 99.2 F 06/21/24 10:02 Pulse Rate 81 06/21/24 10:02 Respiratory Rate 18 06/21/24 10:02 Blood Pressure 149/76 H 06/21/24 10:02 Pulse Oximetry 99 06/21/24 10:02 Oxygen Delivery Room Air 06/21/24 10:02 Temperature 99.2 F 06/21/24 10:02 Pulse Rate 81 06/21/24 10:02 Respiratory Rate 18 06/21/24 10:02 Blood Pressure 149/76 H 06/21/24 10:02 Pulse Oximetry 99 06/21/24 10:02 Oxygen Delivery Room Air 06/21/24 10:02 Reviewed MDM - URI/Sore Throat MDM Narrative Medical decision making narrative: Patient sitting in exam room. Patient is nontoxic vitals stable. Patient presents with URI symptoms. Reports negative home COVID test. No acute findings other than postnasal drainage noted exam Patient appropriate for outpatient treatment with close follow-up Discharge instructions reviewed with patient, as well as provided in writing per nursing staff. The instructions also include specific and strict return/GO TO THE ER as well as f/u information. All questions have been answered, and the patient deny any further questions with discharge and discharge plan. Some parts of this dictation were generated by voice recognition software and may contain typographical and/or grammatical inaccuracies. Differential Diagnosis Differential diagnosis: Likely upper respiratory infection, otitis media, sinusitis, viral infection and bronchitis Critical Care Time Critical Care Time Critical Care Time: No Discharge Plan Discharge Clinical Impression: Bronchitis, PND (post-nasal drip) Patient Disposition: Home Condition: Stable Instructions: Antibiotic Form, Acute Bronchitis (ED), Postnasal Drip (DC) Additional Instructions: It is very important to treat your symptoms. Drink plenty of water, Gatorade, Pedialyte, ice pops or Jell-O. -Alternate Tylenol and Motrin per package directions for fever or pain. You can alternate every 4 hours -Antihistamine medication such as Zyrtec/Claritin/Anahi during the day can help improve symptoms. -doing daily nasal irrigations can help relieve pressure your sinuses. Things like a Neti pot -Use Flonase twice a day for 5 days then daily to help reduce the inflammation and dry up your sinuses. -You can also use Mucinex. Be sure to drink plenty of water with this medication at least 8 ounces with every dose and it is important to drink 8 to 10 glasses of water per day. Water is a natural decongestant -Eat and drink things that are easy to swallow, like tea or soup, or popsicles. -Oral rinses such as: Salt water gargles and/or may use topical anesthetic (eg. Chloraseptic spray) or lozenges to relieve dryness or throat pain). -Frequent hand washing or hand sephora operations consultant is one of the best ways to prevent spread of infection. -Using a vaporizer or humidifier at night will also help thin secretions and help with coughing up phlegm. -Follow up with primary care provider in 7-10 days if condition is not improving - For new or worsening symptoms go directly to the nearest ER Patient Language: Malay Prescriptions: New prednisone 20 mg tablet 40 mg PO DAILY 5 Days Qty: 10 0RF No Action (DME) Space Chamber Spacer See Rx Instructions .ROUTE .MEDSUPPLY Qty: 1 0RF Rx Instructions: As directed albuterol sulfate 90 mcg/actuation HFA aerosol inhaler 1 - 2 inh inhalation Q4-6H PRN (Reason: shortness of breath or wheezing) Qty: 8.5 5RF progesterone micronized 100 mg capsule 100 mg PO QPM Qvar RediHaler 80 mcg/actuation HFA aerosol breath activated 1 inh inhalation Q12H Qty: 10.6 2RF tizanidine 4 mg tablet 2 - 4 mg PO TID PRN (Reason: muscle spasticity) Qty: 90 1RF meloxicam 15 mg tablet 15 mg PO DAILY PRN (Reason: pain) Qty: 30 5RF montelukast [Singulair] 10 mg tablet 10 mg PO QHS Qty: 14 0RF Rx Instructions: 2 week supply while on vacation amlodipine 10 mg tablet 10 mg PO DAILY Qty: 30 11RF hydrochlorothiazide 12.5 mg tablet 12.5 mg PO DAILY Qty: 30 11RF gabapentin 300 mg capsule See Rx Instructions PO BID Qty: 90 5RF Rx Instructions: take 1 cap in AM and 2 caps at night. lisinopril 20 mg tablet 20 mg PO DAILY Qty: 90 3RF Follow-up/Referrals: Gema Spencer NP [Primary Care Provider] - 2 Weeks Stand Alone Forms: Work/School Release IP Time of Disposition: 10:37
== END 2024-06-21 10:39 | disposition home or self-care (01) ==
PROVIDERS: Emergency Provider Nurse Practitioner; PCP Nurse Practitioner Family
DX: J40 Bronchitis, not specified as acute or chronic (principal); R09.82 Postnasal drip; R73.03 Prediabetes; E78.2 Mixed hyperlipidemia; I10 Essential (primary) hypertension
CPT/HCPCS: 99213; G0463

== ENCOUNTER → 2024-07-10 08:38 | Outpatient (CLI) | payer OTHER, SELFPAY ==
--- NOTE | ~2024-07-10 | XR_ITS ---
XR knee RT min 4V 07/10/2024 08:59 INDICATION: Right knee pain PROCEDURE: 4 views right knee COMPARISON: No prior studies for comparison. FINDINGS: Fracture, dislocation or subluxation is not identified. No significant joint effusion. No f oreign bodies The soft tissues appear within normal limits. No foreign bodies are identified. IMPRESSION: 1: NO ACUTE BONE OR JOINT ABNORMALITY IDENTIFIED. Reviewed, dictated and finalized at location A.
--- OUTSIDE RECORDS SUMMARY | 2024-07-10 08:48 | XMS_ITS | Clinical Summary ---
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 PAP: [facility] HISTORICAL RESULTS Comment:INFORMATION NOT PROV IDED PREV. BX: [facility] HISTORICAL RESULTS Comment:INFORMATION NOT PROV IDED SOURCE: [facility] HISTORICAL RESULTS Comment:Cervix STATEMENT OF ADEQUACY: [facility] HISTORICAL RESULTS Comment: Satisfactory for evaluation. Endocervical/transformation zone component present. Age and/or menstrual status not provided INTERPRETATION/RESU LT: [facility] HISTORICAL RESULTS Comment:Negative for intraep ithelial lesion or malignancy. COMMENT: [facility] HISTORICAL RESULTS Comment: This Pap test has been evaluated with computer assisted technology. CREDIT CARD CLERK: [facility] HISTORICAL RESULTS Comment: MMW, CT(ASCP) CT screening location: [place] [address] [place] [address] COMMENT [facility] HISTORICAL RESULTS Comment: EXPLANATORY NOTE: The Pap [...] PM CDT 06/13/2017 10:25 PM CDT Narrative [facility] HISTORICAL RESULTS - 06/13/2017 9:55 PM CDT 0 PERFORMING LAB: [place] [address] [address] [id number] Saul Weber MD us Alexandr Castro MD LAB PATHOLOGY ORDERAB LES Final Result [facility] HISTORICAL RESULTS from Last 3 Months or Most Recently Relevant to Health Maintenance Insurance [place] [address] Care Teams [address] The Road Driver Relationship Specialty Start Date End Date No, Physician PCP - General 10/09/23
--- OUTSIDE RECORDS SUMMARY | 2024-07-10 08:48 | XMS_ITS | Clinical Summary ---
Author Organization [facility] Address [facility] [place] [address] Care Team Providers Care Fish Hatchery Superintendent Name Role Phone Gema SpencerNEISHA Primary Care Provider [phone] Allergies No known active allergies Medications lisinopril [...] on file Legal Sex Female 3:13 PM SERVICE GIRL Gender Identity Female 03/31/2021 8:18 AM SERVICE GIRL Sexual Orientation Straight 03/31/2021 8: 18 AM SERVICE GIRL Last Filed Vital Signs Vital Sign Reading Time Taken Comments Blood Pressure 158/82 04/06/2021 11:35 AM SERVICE GIRL Pulse 78 04/06/2021 11:35 AM SERVICE GIRL Temperature 36.4 C (97.6 F) 04/06/2021 11:35 AM SERVICE GIRL Respiratory Rate 16 04/06/2021 11:3 5 AM SERVICE GIRL Oxygen Saturation 96% 04/06/2021 11: 35 AM SERVICE GIRL Inhaled Oxygen Concentration - - Weight 99.3 kg (218 lb 14.7 oz) 04/06/2021 6:00 AM SERVICE GIRL Height 167.6 cm (5' 6 ) 04/06/2021 6:00 AM SERVICE GIRL Body Mass Index 35.33 04/06/2021 6:00 AM SERVICE GIRL Plan of Treatment Health Maintenance Due Date [...] complete this topic Insurance GEHA Care Teams Fish Hatchery Superintendent Relationship Specialty Start Date End Date Gema Spencer APNP [address] [address] PCP - General Nurse Practitioner Family 04/06/21
--- OUTSIDE RECORDS SUMMARY | 2024-07-10 08:48 | XMS_ITS | Referral Summary ---
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 EXECUTIVE OFFICE MANAGER: [facility] HISTORICAL RESULTS Comment: MMW, CT(ASCP) CT screening location: [place] [address] [place] [address] [facility] HISTORICAL RESULTS Comment: EXPLANATORY [...] PM CDT 06/13/2017 10:25 PM CDT Narrative [facility] HISTORICAL RESULTS - 06/13/2017 9:55 PM CDT 0 PERFORMING LAB: , [facility] [place] [address] [facility] [id number] Saul Weber MD Alexandr Castro MD LAB PATHOLOGY ORDERAB LES Final Result [facility] HISTORICAL RESULTS from Last 3 Months or Most Recently Relevant to Health Maintenance Insurance [employer] PPO Care Teams Dispatcher Bus And Trolley Relationship Specialty Start Date End Date No, Physician PCP - General 10/09/23
== END ==
LOC: EXPTROY 08:40
PROVIDERS: PCP Nurse Practitioner Family; Visit Provider Nurse Practitioner Family
DX: M25.561 Pain in right knee (principal); M25.461 Effusion, right knee
CPT/HCPCS: 73564

== ENCOUNTER 2024-09-02 08:00 | Outpatient (CLI) | payer OTHER, SELFPAY ==
--- NOTE | ~2024-09-02 | MR_ITS ---
MRI of the lumbar spine Clinical History: Radiculopathy Technique: Axial T2-weighted images, and sagittal T1-weighted, T2-weighted, and T2 fat-sat images wer e acquired. COMPARISON: 01/09/2023 Findings: There is no fracture or sublocation of the lumbar spine. Vertebral bodies maintain normal h eight and alignment. No bone marrow signal abnormality seen. At L1-L2, L2-L3, L3-L4, there is no disc bulge or herniation. There is moderate facet arthropathy res ults. No spinal canal stenosis or neural foraminal narrowing at these levels. At L4-L5, there is mild disc bulge with moderate facet arthropathy. No central canal stenosis or neur al foraminal narrowing. At L5-S1, there is disc protrusion centrally with mild facet arthropathy. No central canal stenosis. There is moderate bilateral neural foraminal narrowing, left worse than right. Paravertebral soft tissues are unremarkable. Impression: Moderate degenerative change at L5-S1, as above. Mild degenerative change at L4-L5, as above. Reviewed, dictated and finalized at location . Impression: Moderate degenerative change at L5-S1, as above. Mild degenerative change at L4-L5, as above.
== END 2024-09-02 08:01 | disposition home or self-care (01) ==
LOC: MICIMG 08:02
PROVIDERS: PCP Nurse Practitioner Family; Visit Provider Nurse Practitioner Family
DX: M47.896 Other spondylosis, lumbar region (principal); M47.897 Other spondylosis, lumbosacral region
CPT/HCPCS: 72148

== ENCOUNTER → 2024-11-20 15:11 | Outpatient (CLI) | payer OTHER, SELFPAY ==
--- NOTE | ~2024-11-20 | XR_ITS ---
EXAMINATION: XR shoulder RT min 2V, 11/20/2024 15:14 CDT HISTORY: M25.511 - Pain in right shoulder COMPARISON: No comparisons available. Findings: No acute fracture or malalignment. No significant degenerative changes. Soft tissues unremarkable. Impression: No acute fracture or malalignment. Reviewed, dictated and finalized at location A. Impression: No acute fracture or malalignment.
--- OUTSIDE RECORDS SUMMARY | 2024-11-20 15:56 | XMS_ITS | Clinical Summary ---
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 Gender Identity Female 03/31/2021 8:18 AM HYDROGEN POWER PLANT MANAGER Sexual Orientation Straight 03/31/2021 8: 18 AM HYDROGEN POWER PLANT MANAGER Last Filed Vital Signs Vital Sign Reading Time Taken Comments Blood Pressure 158/82 04/06/2021 11:35 AM HYDROGEN POWER PLANT MANAGER Pulse 78 04/06/2021 11:35 AM HYDROGEN POWER PLANT MANAGER Temperature 36.4 C (97.6 F) 04/06/2021 11:35 AM HYDROGEN POWER PLANT MANAGER Respiratory Rate 16 04/06/2021 11:3 5 AM HYDROGEN POWER PLANT MANAGER Oxygen Saturation 96% 04/06/2021 11: 35 AM HYDROGEN POWER PLANT MANAGER Inhaled Oxygen Concentration - - Weight 99.3 kg (218 lb 14.7 oz) 04/06/2021 6:00 AM HYDROGEN POWER PLANT MANAGER Height 167.6 cm (5' 6) 04/06/2021 6:00 AM HYDROGEN POWER PLANT MANAGER Body Mass Index 35.33 04/06/2021 6:00 AM HYDROGEN POWER PLANT MANAGER Plan of Treatment Health Maintenance Due Date Last Done Comments Colorectal Cancer Screening Colonoscopy (10 Years) 1975 Annual Physical 1978 Hepatitis C 1993 DTaP, Tdap and Td Vaccines ( 1 - Tdap) 1994 Hepatitis B Vaccines (1 of 3 - 19+ 3-dose series) 1994 Mammogram Screening 2015 COVID-19 Vaccine (3 - 2024-2 6 season) 2024 04/06/2020, 03/14/2020 Meningococcal B Vaccine Aged Out [...] complete this topic Insurance [employer] Care Teams Mold Shop Supervisor Relationship Specialty Start Date End Date Gema Spencer APNP [address] [id number] PCP - General Nurse Practitioner Family 04/06/21
--- OUTSIDE RECORDS SUMMARY | 2024-11-20 15:56 | XMS_ITS | Clinical Summary ---
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 Gender Identity Not on file Sexual Orientation [...] 11:45 AM CDT Height 167 cm (5' 5.75) 01/03/2018 11:45 AM CDT Body Mass Index 31.57 01/03/2018 11:45 AM CDT Plan of Treatment Health Maintenance Due Date Last Done Comments Breast Cancer Screening-Mammogram 1975 Colon Cancer Screening-Colonoscopy 1975 Depression Screening 1975 Hepatitis C Screening 1975 DTaP/Tdap/Td Vaccine (1 - Tdap) 1986 Hepatitis B Screening 1993 Regular Well Visit/Exam 18-64 1993 Cervical Cancer Screening 06/07/2018 06/07/2017 Covid-19 Vaccine ( season) 2024 12/24/2021, 01/02/2021, 04/06/2020, Additional history exists Influenza Vaccine (#1) 2024 2, 01/02/2021, 11/30/2017, Additional history exists Pneumococcal vaccine <65 Aged Out No longer eligible based on patient's age to complete this topic Procedures Procedure Name Priority Date/Time Associated Diagnosis Comments THINPREP JOURNEYMAN CARPENTER PAP (IMAGE GUIDED) LIQUID-BASED PREP Routine 06/07/2017 2:09 PM CDT from Last 3 Months or Most Recently Relevant to Health Maintenance Results * ThinPrep Gynecologic Pap Test (Image-guided), Liquid-based Preparation (06/07/2017 2:09 PM CDT) CLINICAL INFORMATION [facility] HISTORICAL RESULTS Comment:Information not prov ided LMP: [facility] HISTORICAL RESULTS Comment:INFORMATION NOT PROV IDED PREV. PAP: [facility] HISTORICAL RESULTS Comment:INFORMATION NOT PROV IDED PREV. BX: [facility] HISTORICAL RESULTS Comment:INFORMATION NOT PROV IDED SOURCE: [facility] HISTORICAL RESULTS Comment:Cervix STATEMENT OF ADEQUACY: [facility] HISTORICAL RESULTS Comment: Satisfactory for evaluation. Endocervical/transformation zone component present. Age and/or menstrual status not provided INTERPRETATION/RESU LT: [facility] HISTORICAL RESULTS Comment:Negative for intraep ithelial lesion or malignancy. COMMENT: [facility] HISTORICAL RESULTS Comment: This Pap test has been evaluated with computer assisted technology. MARINA PORTER: [facility] HISTORICAL RESULTS Comment: MMW, CT(ASCP) CT screening location: [place] [address] [place] [address] COMMENT [facility] HISTORICAL RESULTS Comment: EXPLANATORY NOTE: The Pap [...] PM CDT 06/13/2017 10:25 PM CDT Narrative [facility] HISTORICAL RESULTS - 06/13/2017 9:55 PM CDT 0 PERFORMING LAB: [facility] [address] [address] [facility] [id number] Saul Weber MD us Alexandr Castro MD LAB PATHOLOGY ORDERAB LES Final Result [facility] HISTORICAL RESULTS from Last 3 Months or Most Recently Relevant to Health Maintenance Insurance [employer] PPO Care Teams V Belt Finisher Relationship Specialty Start Date End Date No, Physician PCP - General 10/09/23
== END ==
LOC: EXPTRAD 15:14
PROVIDERS: PCP Nurse Practitioner Family; Visit Provider Nurse Practitioner Family
DX: M25.511 Pain in right shoulder (principal)
CPT/HCPCS: 73030